=== PATIENT | male | born 1950 | race Caucasian/White ===

== ENCOUNTER 2023-03-15 15:49 | Inpatient (IN) ==
--- NOTE | 2023-03-15 16:22 | DR.AMS ---
HPI Time Seen Time Seen by Provider: 03/15/23 16:21 Complaint Cheif Complaint Doctors Comments: Patient has multiple complaints.He lives alone and states that he has been feeling sob x 1-2 days. Patient has had the ulcerative lesions for several months and had wound care done yesterday. Patient has erythema surrounding his colostomy bag and scrotal erythema. Patient fell 3 weeks ago and was sent tp [facility] for Back Surgery. Patient states that he fell after the surgery and has not been checked out.He is concerned that he has injured his surgical sites. Patient denies: fev er,n,v,chest pain,abdl pain. COVID-19 Coronavirus risk:travel/contact w/high risk person: No Has patient experienced Coronavirus symptoms: No PMH PMH Past Medical History: Anxiety and Hypertension Past Surgical History: Yes Surgical History: Bowel Resection and Ortho Surgery Family History Family Medical History: Hypertension Social History Do you use any recreational Drugs:: No Travel Risk Coronavirus risk:travel/contact w/high risk person: No Has patient experienced Coronavirus symptoms: No ROS Review of Systems Constitutional: negative Fever Eyes: No Symptoms Reported ENTM: No Symptoms Reported Respiratoy: negative Productive Cough or Dry Cough Cardiovascular: Edema (Bilateral lower extremities( nonpitting)); negative Chest Pain Gastrointestinal/Abdominal: negative Diarrhea Genitourinary: No Symptoms Reported Neurological: No Symptoms Reported Musculoskeletal: negative Back Pain Integumentary: Change in Color (BLE,Bilateral scrotal erythema) and Wound (Decubitus ulcers: Rt ankle,Left ankle/Rt>Lt heel/Rt Tib/fib/Left knee) Hematologic/Lymphatic: No Symptoms Reported Endocrine: No Symptoms Reported Psychiatric: No Symptoms Reported All Other Systems: Reviewed and Negative PE Vitals Vital Signs: Temp Pulse Resp BP Pulse Ox O2 Del Method 03/15/23 21:30 124/73 03/15/23 21:30 88 24 03/15/23 21:15 88 24 03/15/23 21:00 86 22 03/15/23 21:00 127/62 03/15/23 20:45 86 22 03/15/23 20:30 128/59 03/15/23 20:30 83 22 96 03/15/23 20:15 81 15 98 03/15/23 20:08 83 97 03/15/23 20:08 131/62 03/15/23 19:30 81 23 99 03/15/23 19:30 142/65 03/15/23 19:00 79 19 98 03/15/23 19:00 126/63 03/15/23 20:16 94.1 F L 03/15/23 18:45 82 12 99 03/15/23 18:30 79 16 97 03/15/23 18:30 123/58 03/15/23 18:22 85 98 03/15/23 18:17 92.9 F L 03/15/23 18:00 131/66 03/15/23 18:00 78 16 97 03/15/23 17:45 83 23 99 03/15/23 17:30 73 18 97 03/15/23 17:30 127/66 03/15/23 17:15 77 33 H 100 03/15/23 17:00 75 19 98 03/15/23 17:00 123/59 03/15/23 16:45 74 18 98 03/15/23 16:41 76 22 99 03/15/23 16:41 112/57 03/15/23 16:30 84 18 03/15/23 16:15 80 23 99 03/15/23 16:00 121/59 03/15/23 16:00 77 18 98 03/15/23 15:58 79 17 98 03/15/23 15:55 135/69 03/15/23 15:55 135/69 03/15/23 15:50 93.3 F L 82 22 135/69 99 Room Air General Limitations: Language Barrier General Appearance: Alert Head Head Exam: Normal Inspection Eyes Eye exam: Normal Appearance ENT ENT Exam: Normal Exam External Ear Exam: Normal External Inspection Nose Exam: Normal Nose Exam Mouth Exam: Normal Inspection Throat Exam: Normal Inspection Neck Neck Exam: Normal Inspection Chest Chest Inspection: Normal Inspection Respiratory Respiratory Exam: Normal Lung Sounds Bilat Respiratory Exam: Bilateral: Clear to Auscultation Cardiovascular Cardiovascular Exam: Regular Rate and Normal Rhythm Abdominal Exam Abdominal Exam: Normal Inspection, Normal Bowel Sounds, Soft and Other (colostomy LLQ-pos erythema surrounding colostomy) Extremities Extremities Exam: Edema (Nonpitting Bilateral LE,+erythema,+warmth) Back Back Exam: Normal Inspection Neurological Neurological Exam: Alert, Oriented X3 and CN II-XII Intact Speech: Fluid Speech Cranial Nerve Exam: EOM Function (II, III, IV, ): Normal, Facial Sensation (V): Normal, Facial Palsy (VII): Normal, Gag reflex (XI): Normal, Spinal Accessory Function (XI): Normal and Tongue Deviation: Normal Psychological Psychiatric Exam: Normal Affect and Normal Mood Skin Skin Exam: Warm, Dry and Intact; negative Normal Color (erythema scrotal,erythema surr. colostomy,erythema BLE,erythma B feet) Other Exam Other Exam: UlCERATED LESIONS:LEFT KNEE JOINT-STAGE 4/LEFT LATERAL MALLEOLUS STAGE 4/LEFT GREAT TOE LATERAL ASPECT STAGE 2/ LEFT HEEL STAGE 1 RT MEDIAL MALEOLUS STAGE 4/RT HEEL NECROTIC LESION COURSE Treatment Treatment: Patient was brought to monitored room.IV access was initiated, labs were drawn, and wound cultures were taken at each ulcerated lesion. 1) Family thought that he was confused and not acting himself. Head CT without contrast was negative. 2) Patient had a fall 3 weeks ago requiring transfer to [facility] for surgery. He states that he fell after having his back surgery and never had himself evaluated. The CT scans without contrast of patient's c ervical, thoracic, lumbar spine were without acute injury. 3) Patient stated that he was short of breath. His ABG revealed a pO2 of 89 and an O2 sat on room air of 97%. Patient's CXR compared to the chest x-ray on 02/08/2023 did not reveal an acute process. 4) patient has multiple areas where he may develop severe infection. He was given a vancomycin loading dose of 1500 mg IV for the cellulitis of his abdomen surrounding the colostomy, scrotal cellulitis, cellulitis of his bilateral lower extremities and feet, and his significant ulcerated lesions. Discussed case with who has accepted the patient to her service. ROR Labs Reviewed Laboratory Results Reviewed?: Yes 03/16/23 04:21 03/16/23 04:21 Laboratory: 03/15/23 17:35 Leg - Left Wound Culture - Preliminary 03/15/23 17:33 Knee - Left Wound Culture - Preliminary 03/15/23 17:37 Ankle - Left Wound Culture - Preliminary 03/15/23 17:32 Toe - Left Big Wound Culture - Preliminary 03/15/23 17:24 Ankle - Right Wound Culture - Preliminary WBC 7.8 X10^3/uL (3.6-10.0) 03/15/23 17:05 RBC 3.17 X10^6/uL (4.7-6.0) L 03/15/23 17:05 Hgb 7.8 g/dL (13.5-18.0) L 03/15/23 17:05 Hct 24.6 % (42.0-54.0) L 03/15/23 17:05 MCV 77.5 fL (80.0-100.0) L 03/15/23 17:05 MCH 24.5 pg (27.0-34.0) L 03/15/23 17:05 MCHC 31.6 g/dL (33.0-35.0) L 03/15/23 17:05 RDW 16.7 % (11.6-16.5) H 03/15/23 17:05 Plt Count 219 X10^3/uL (150.0-450.0) 03/15/23 17:05 MPV 7.7 fL (7.4-11.0) 03/15/23 17:05 Neut % (Auto) 78.5 % (42.0-75.0) H 03/15/23 17:05 Lymph % (Auto) 11.0 % (21.0-51.0) L 03/15/23 17:05 Holmes % (Auto) 4.7 % (0.0-13.0) 03/15/23 17:05 Eos % (Auto) 5.3 % (0.9-2.9) H 03/15/23 17:05 Baso % (Auto) 0.5 % (0.2-1.0) 03/15/23 17:05 Neut # (Auto) 6.1 x10^3/uL (2.2-4.8) H 03/15/23 17:05 Lymph # (Auto) 0.9 X10^3/uL (1.3-2.9) L 03/15/23 17:05 [place] # (Auto) 0.4 x10^3/uL (0.3-0.8) 03/15/23 17:05 Eos # (Auto) 0.4 x10^3/uL (0.0-0.2) H 03/15/23 17:05 Baso # (Auto) 0.0 X10^3/uL (0.0-0.1) 03/15/23 17:05 Absolute Nucleated RBC 0.1 /100WBC 03/15/23 17:05 Sample Site Lbra 03/15/23 17:19 ABG pH 7.460 (7.35-7.45) H 03/15/23 17:19 ABG pCO2 41.0 mmHg (35.0-45.0) 03/15/23 17:19 ABG pO2 87.0 mmHg (80.0-100.0) 03/15/23 17:19 ABG HCO3 29.2 mmol/L (22-26) H 03/15/23 17:19 ABG O2 Saturation 97.0 % (90-100) 03/15/23 17:19 ABG Base Excess 4.9 mmol/L (-2.0-2.0) H 03/15/23 17:19 Austin Test Na 03/15/23 17:19 A-a Gradient 11.0 mmHg 03/15/23 17:19 FiO2 21.0 03/15/23 17:19 Blood Gas Comments Pt ketty well eb 03/15/23 17:19 Sodium 134 mmol/L (136-145) L 03/15/23 17:05 Corrected Sodium TNP 03/15/23 17:05 Potassium 3.6 mmol/L (3.5-5.1) 03/15/23 17:05 Chloride 105 mmol/L (98-107) 03/15/23 17:05 Carbon Dioxide 26.8 mmol/L (21-32) 03/15/23 17:05 BUN 20 mg/dL (7-18) H 03/15/23 17:05 Creatinine 0.59 mg/dL (0.70-1.30) L 03/15/23 17:05 Est GFR (MDRD) Af Amer > 60 (>60) 03/15/23 17:05 Est GFR (MDRD) Non-Af > 60 (>60) 03/15/23 17:05 Glucose 80 mg/dL (65-99) 03/15/23 17:05 Lactic Acid 1.0 mmol/L (0.4-2.0) 03/15/23 17:05 Calcium 8.6 mg/dL (8.5-10.1) 03/15/23 17:05 Corrected Calcium 10.4 mg/dL (8.5-10.1) H 03/15/23 17:05 Total Bilirubin 0.40 mg/dL (0.2-1.0) 03/15/23 17:05 AST 34 Units/L (15-37) 03/15/23 17:05 ALT 22 Units/L (12-78) 03/15/23 17:05 Alkaline Phosphatase 216 Units/L (46-116) H 03/15/23 17:05 Creatine Kinase 169 Units/L (39-308) 03/15/23 17:05 Troponin I High Sens 18.9 ng/L (4.0-60.0) 03/15/23 19:30 C-Reactive Protein 115.20 mg/L (0-3.0) H 03/15/23 17:05 B-Natriuretic Peptide 92.1 pg/mL (0-79) H 03/15/23 17:05 Total Protein 6.8 g/dL (6.4-8.2) 03/15/23 17:05 Albumin 1.8 g/dL (3.4-5.0) L 03/15/23 17:05 Globulin 5.0 g/dL (2.5-4.5) H 03/15/23 17:05 Albumin/Globulin Ratio 0.4 Ratio (1.1-2.1) L 03/15/23 17:05 Opioid Opioid Risk Tool Age (Johan box if 16-45): No History of Preadolescent Sexual Abuse: No Total: 0 Total Score Risk Category: Low Risk Copyright: Juarez MCCRAY predicting aberrant behaviors Discharge Plan Diagnosis Discharge Problem: Cellulitis, Skin ulcer of multiple sites Discharge Plan Patient Disposition: 09 ADMITTED INPATIENT Condition: Stable
[2023-03-15 17:21] LABS: ABG BASE EXCESS 4.9 mmol/L (-2.0-2.0); ABG HCO3 29.2 mmol/L (22-26)
[2023-03-15 17:24] LABS: EOSINOPHILS # (AUTO) 0.4 x10^3/uL (0.0-0.2); HEMOGLOBIN 7.8 g/dL (13.5-18.0); MONOCYTES # (AUTO) 0.4 x10^3/uL (0.3-0.8); RED BLOOD COUNT 3.17 X10^6/uL (4.7-6.0); WHITE BLOOD COUNT 7.8 X10^3/uL (3.6-10.0)
[2023-03-15 17:33] LABS: BASOPHILS % (AUTO) 0.5 % (0.2-1.0); EOSINOPHILS % (AUTO) 5.3 % (0.9-2.9); HEMATOCRIT 24.6 % (42.0-54.0); LYMPHOCYTES # (AUTO) 0.9 X10^3/uL (1.3-2.9); MEAN CORPUSCULAR HEMOGLOBIN 24.5 pg (27.0-34.0); MEAN CORPUSCULAR HGB CONC 31.6 g/dL (33.0-35.0); MEAN CORPUSCULAR VOLUME 77.5 fL (80.0-100.0); MEAN PLATELET VOLUME 7.7 fL (7.4-11.0); MONOCYTES % (AUTO) 4.7 % (0.0-13.0); NEUTROPHILS # (AUTO) 6.1 x10^3/uL (2.2-4.8); NEUTROPHILS % (AUTO) 78.5 % (42.0-75.0); PLATELET COUNT 219 X10^3/uL (150.0-450.0); RED CELL DISTRIBUTION WIDTH 16.7 % (11.6-16.5)
[2023-03-15 17:37] LABS: ALANINE AMINOTRANSFERASE 22 Units/L (12-78); ALBUMIN 1.8 g/dL (3.4-5.0); ALKALINE PHOSPHATASE 216 Units/L (46-116); ASPARTATE AMINO TRANSFERASE 34 Units/L (15-37); BLOOD UREA NITROGEN 20 mg/dL (7-18); CALCIUM 8.6 mg/dL (8.5-10.1); CARBON DIOXIDE 26.8 mmol/L (21-32); CHLORIDE 105 mmol/L (98-107); COR CA(FOR HYPOALB) 10.4 mg/dL (8.5-10.1); CREATINE KINASE 169 Units/L (39-308); CREATININE 0.59 mg/dL (0.70-1.30); GLUCOSE 80 mg/dL (65-99); POTASSIUM 3.6 mmol/L (3.5-5.1); SODIUM 134 mmol/L (136-145); TOTAL PROTEIN 6.8 g/dL (6.4-8.2); eGFR NON BLACK RACES > 60 (>60)
[2023-03-15] MEDS ORDERED: NS 500 ML IV 500 ML IV ONE ×2 (17:56→18:05)
[2023-03-15] MEDS ORDERED: VANCOMYCIN IV *PREMIX 1.5 G/300 ML BAG 1.5 G/300 ML PIGGYBACK IV ONE (18:05)
[2023-03-15] MEDS: VANCOMYCIN IV *PREMIX 1.5 G/300 ML BAG 1.5 G/300 ML PIGGYBACK IV SCH ×2 (18:12→22:14)
--- NOTE | 2023-03-15 19:11 | CT ---
EXAM:BRAIN W/O CONHISTORY:AMS, CONFUSED;COMPARISON:NoneTECHNIQUE:CT scan of the brain was obtained from skull base to vertex without contrast. Dose reduction techniques were utilized.Contrast: NoneFINDINGS:There is diffuse cerebral and cerebellar volume loss. There is no ventricular shift or mass-effect. There are no intraparenchymal masses or extra-axial collections. There is no evidence of intracranial hemorrhage or mass-effect.There are mild atherosclerotic changes noted of the cavernous carotid arteries.Skull base and calvarium are intact. Paranasal sinuses are clear.IMPRESSION:No evidence of acute intracranial pathology. Diffuse generalized cerebral atrophy.THIS IS AN ELECTRONICALLY VERIFIED FINAL REPORT03/15/2023 7:02 PM - Electronically signed by Ginger Colorado MD
--- NOTE | 2023-03-15 19:36 | EKG ---
Test Reason : sob Blood Pressure : */* mmHG Vent. Rate : 83 BPM Atrial Rate : 83 BPM P-R Int : 184 ms QRS Dur : 118 ms QT Int : 428 ms P-R-T Axes : 67 30 56 degrees QTc Int : 502 ms Normal sinus rhythm Incomplete right bundle branch block Septal infarct , age undetermined Prolonged QT Abnormal ECG No previous ECGs available Confirmed by Luis Hendricks ([id number]) on 03/17/2023 7:54:25 AM Referred By: Confirmed By: Luis Hendricks
--- NOTE | 2023-03-15 19:54 | CT ---
EXAM:CT cervical spine without contrastHISTORY:Fall, neck pain.COMPARISON:None.TECHNIQUE:Nonenhanc ed spiral CT imaging was performed through the cervical spine and axial, coronal, and sagittal CT images were generated.FINDINGS:There has been fusion of the cervical spine from C5-C7 with both anterior and posterior hardware. The hardware is intact and the fusion is complete. There is no malalignment above or below the fusion. There is multilevel disc degeneration including atlantoaxial degeneration. There is multilevel facet hypertrophy but no fracture of the posterior elements.C1: There is severe spinal stenosis with the AP dimension of the spinal canal narrowed to 5.6 mm.C2-C3: No significant spinal or neural foraminal stenosis.C3-C4: Mild spinal stenosis. Moderate right C4 neural foraminal narrowing.C4-C5: Mild spinal stenosis.C5 through C7: Adequate decompression.IMPRESSION:Degenerative and postsurgical change but nothing acute.THIS IS AN ELECTRONICALLY VERIFIED FINAL REPORT03/15/2023 7:51 PM - Electronically signed by Tyrone Ferrera MD
--- NOTE | 2023-03-15 21:05 | CT ---
EXAM:LUMBAR SPINE W/O CONHISTORY:tspine pains from fall 3 weeks ago;COMPARISON:None.TECHNIQUE:Nonenhance d spiral CT imaging was performed through the lumbar spine and axial, coronal, and sagittal CT images were generated.FINDINGS:The alignment is anatomic. There is posterior fusion extending from L2 into the lower thoracic spine. There is a burst fracture of T12 which is only partially imaged on this exam and is likely the reason for the posterior fusion. There is no evidence of acute fracture in the lumbar spine. There is no fracture seen in the posterior elements. There is multilevel facet hypertrophy. There is osteopenia/osteoporosis in the pelvis. There is fusion across the SI joints. There is [id number] systemic atherosclerosis.IMPRESSION:Nothing acute in the lumbar spine.THIS IS AN ELECTRONICALLY VERIFIED FINAL REPORT03/15/2023 9:02 PM - Electronically signed by Tyrone Ferrera MD
--- NOTE | 2023-03-15 21:44 | CT ---
EXAM:THORACIC SPINE W/O CONHISTORY:tspine pain from fall 3 weeks ago;COMPARISON:02/11/2023TECHNIQUE:Nonen hanced spiral CT imaging was performed through the thoracic spine and axial, coronal, and sagittal CT images were generated.FINDINGS:There is posterior stabilization with hardware spanning from T10-L2. There is a burst fracture of T12 which is well stabilized with hardware. There is no evidence of hardware loosening or failure. There is no fracture seen in the upper thoracic spine. There is no fracture seen in the posterior elements. With the exception of the T12 level there is no spinal stenosis. There is some debris from the vertebral compression fracture extending into the spinal canal. There is also some mild neural foraminal narrowing at T12 bilaterally.IMPRESSION:The hardware is intact and no acute fracture is detected.THIS IS AN ELECTRONICALLY VERIFIED FINAL REPORT03/15/2023 9:41 PM - Electronically signed by Tyrone Ferrera MD
[2023-03-16 05:20] LABS: BASOPHILS % (AUTO) 0.5 % (0.2-1.0); EOSINOPHILS # (AUTO) 0.3 x10^3/uL (0.0-0.2); EOSINOPHILS % (AUTO) 3.8 % (0.9-2.9); HEMATOCRIT 23.7 % (42.0-54.0); HEMOGLOBIN 7.5 g/dL (13.5-18.0); LYMPHOCYTES # (AUTO) 0.8 X10^3/uL (1.3-2.9); LYMPHOCYTES % (AUTO) 9.4 % (21.0-51.0); MEAN CORPUSCULAR HEMOGLOBIN 24.3 pg (27.0-34.0); MEAN CORPUSCULAR HGB CONC 31.6 g/dL (33.0-35.0); MEAN CORPUSCULAR VOLUME 76.9 fL (80.0-100.0); MEAN PLATELET VOLUME 7.9 fL (7.4-11.0); MONOCYTES # (AUTO) 0.6 x10^3/uL (0.3-0.8); MONOCYTES % (AUTO) 6.8 % (0.0-13.0); NEUTROPHILS % (AUTO) 79.5 % (42.0-75.0); PLATELET COUNT 226 X10^3/uL (150.0-450.0); RED BLOOD COUNT 3.09 X10^6/uL (4.7-6.0); RED CELL DISTRIBUTION WIDTH 17.1 % (11.6-16.5); WHITE BLOOD COUNT 8.8 X10^3/uL (3.6-10.0)
[2023-03-16 05:45] LABS: ALANINE AMINOTRANSFERASE 22 Units/L (12-78); ALBUMIN 1.7 g/dL (3.4-5.0); ALKALINE PHOSPHATASE 199 Units/L (46-116); ASPARTATE AMINO TRANSFERASE 33 Units/L (15-37); BLOOD UREA NITROGEN 18 mg/dL (7-18); CALCIUM 8.5 mg/dL (8.5-10.1); CHLORIDE 105 mmol/L (98-107); COR CA(FOR HYPOALB) 10.3 mg/dL (8.5-10.1); COR NA(FOR HYPERGLY) 139 mmol/L (136-145); GLUCOSE 120 mg/dL (65-99); POTASSIUM 3.3 mmol/L (3.5-5.1); SODIUM 139 mmol/L (136-145); TOTAL PROTEIN 6.8 g/dL (6.4-8.2); eGFR NON BLACK RACES > 60 (>60)
[2023-03-16] MEDS: VANCOMYCIN IV *PREMIX 1.75 G/350 ML BAG 1.75 G/350 ML PIGGYBACK IV SCH ×2 (05:52→17:26)
[2023-03-16] MEDS: CLEOCIN 600 MG IV PREMIX 600 MG/50 ML BAG IV SCH ×4 (05:52→20:59)
[2023-03-16 05:54] LABS: BILIRUBIN,URINE NEGATIVE (NEGATIVE); BLOOD/HEMOGLOBIN,URINE 2+ (NEGATIVE); GLUCOSE, URINE NEGATIVE (NEGATIVE); KETONES,URINE 1+ (NEGATIVE); LEUKOCYTE ESTERASE ,URINE NEGATIVE (NEGATIVE); NITRITES,URINE NEGATIVE (NEGATIVE); PROTEIN,URINE 1+ (NEGATIVE); UROBILINOGEN,URINE NORMAL (NORMAL)
[2023-03-16 05:58] LABS: APPEARANCE,URINE CLEAR (CLEAR); COLOR,URINE DARK YELLOW (YELLOW)
[2023-03-16 05:59] LABS: BACTERIA,URINE TRACE /HPF (NEGATIVE); SQUAMOUS EPITHELIAL CELL,UR MODERATE /HPF (NEGATIVE)
[2023-03-16] MEDS ORDERED: CONSULT PHARMACY - POTASSIUM & MAGNESIUM XX SCH (07:00)
[2023-03-16] MEDS ORDERED: K-DUR TAB 20 MEQ PO SCH (09:00)
--- NOTE | 2023-03-16 13:12 | RAD ---
EXAM:CHEST, 1 VIEWHISTORY:sob, ams;COMPARISON:02/12/2023TECHNIQUE:Alonso ble AP chestFINDINGS:The heart size is enlarged. There is atherosclerosis in the aortic arch. Pulmonary blood flow is congested. The interstitial markings are improved since the earlier study. There is persistent opacity in the left midlung to left base. There is no definite pleural effusion.IMPRESSION:Interval improvement with some non-specific opacity in the left midlung to left base.THIS IS AN ELECTRONICALLY VERIFIED FINAL REPORT03/16/2023 1:08 PM - Electronically signed by Tyrone Ferrera MD
--- NOTE | 2023-03-16 13:13 | DR.H&P ---
H&P History & Physical for Day of: H&P Date: 03/16/23 Chief Complaint Chief Complaint: AMS, leg ulcers Allergies Allergies Allergy/AdvReac Type Severity Reaction Status Date / Time diazepam [From Valium] Allergy Verified 08/09/19 09:26 zolpidem [From Ambien] Allergy Verified 08/09/19 09:26 History of Present Illness History of Present Illness: Mr Moss is a 72y/o male who presented with altered mental status and worsening LE redness and ulcers. He is paraplegic. He had left leg surgery in December 2022 and since then has had worsening LE swelling and redness. He has multiple ulcers on both legs. He is currently seeing wound care outpatient. He was suppose to be scheduled for I&D. In the ER, Ct-head was negative for any acute process. Wound Cx and blood Cx were collected, patient was started on IV antibiotics. He is alert and oriented this morning. LE redness seems to have improved. Labs/imaging reviewed - WBC 8.8 Hgb 7.5 - Wound Cx: gram + cocci, gram (-) rods Plan: Consult surgery for possible I&D. Follow pending cultures. Continue IV Clindamycin, Rocephin and Vancomycin. Wound care as per nursing. Monitor H&H, transfuse if below 7. Replace K as per protocol. Resume home medications. Monitor AM labs/imaging. Past Medical History Past Medical History: Anxiety and Hypertension Additional Medical History: Paraplegia, Pernicious Anemia, Hemorrhoids Past Surgical History Surgical History: Bowel Resection and Ortho Surgery Additional Surgical History: Neck Surgery, Eye Surgery Family History Family Medical History: Hypertension Social History Does patient currently use any type of tobacco product: No Have you used tobacco products in the last 12 months: No Type of Tobacco Use: None Does any household member use tobacco: No Alcohol Use: None Drug Use: None Medications Home Medications: Home Medications Medication Instructions Recorded Confirmed Type nitrofurantoin 100 mg PO BID 02/08/23 03/15/23 History monohydrate/macrocrystals 100 mg capsule (Macrobid) escitalopram oxalate 10 mg tablet 10 mg PO QDAY 02/10/23 03/15/23 History furosemide 40 mg tablet 40 mg PO BID 03/15/23 03/15/23 History levofloxacin 750 mg tablet 750 mg PO QDAY 03/15/23 03/15/23 History Labs 03/16/23 04:21 03/16/23 04:21 Labs: 03/15/23 17:35 Leg - Left Wound Culture - Preliminary 03/15/23 17:33 Knee - Left Wound Culture - Preliminary 03/15/23 17:37 Ankle - Left Wound Culture - Preliminary 03/15/23 17:32 Toe - Left Big Wound Culture - Preliminary 03/15/23 17:24 Ankle - Right Wound Culture - Preliminary Laboratory WBC 8.8 X10^3/uL (3.6-10.0) 03/16/23 04:21 RBC 3.09 X10^6/uL (4.7-6.0) L 03/16/23 04:21 Hgb 7.5 g/dL (13.5-18.0) L 03/16/23 04:21 Hct 23.7 % (42.0-54.0) L 03/16/23 04:21 MCV 76.9 fL (80.0-100.0) L 03/16/23 04:21 MCH 24.3 pg (27.0-34.0) L 03/16/23 04:21 MCHC 31.6 g/dL (33.0-35.0) L 03/16/23 04:21 RDW 17.1 % (11.6-16.5) H 03/16/23 04:21 Plt Count 226 X10^3/uL (150.0-450.0) 03/16/23 04:21 MPV 7.9 fL (7.4-11.0) 03/16/23 04:21 Neut % (Auto) 79.5 % (42.0-75.0) H 03/16/23 04:21 Lymph % (Auto) 9.4 % (21.0-51.0) L 03/16/23 04:21 [place] % (Auto) 6.8 % (0.0-13.0) 03/16/23 04:21 Eos % (Auto) 3.8 % (0.9-2.9) H 03/16/23 04:21 Baso % (Auto) 0.5 % (0.2-1.0) 03/16/23 04:21 Neut # (Auto) 7.0 x10^3/uL (2.2-4.8) H 03/16/23 04:21 Lymph # (Auto) 0.8 X10^3/uL (1.3-2.9) L 03/16/23 04:21 [place] # (Auto) 0.6 x10^3/uL (0.3-0.8) 03/16/23 04:21 Eos # (Auto) 0.3 x10^3/uL (0.0-0.2) H 03/16/23 04:21 Baso # (Auto) 0.0 X10^3/uL (0.0-0.1) 03/16/23 04:21 Absolute Nucleated RBC 0.1 /100WBC 03/16/23 04:21 Sample Site Lbra 03/15/23 17:19 ABG pH 7.460 (7.35-7.45) H 03/15/23 17:19 ABG pCO2 41.0 mmHg (35.0-45.0) 03/15/23 17:19 ABG pO2 87.0 mmHg (80.0-100.0) 03/15/23 17:19 ABG HCO3 29.2 mmol/L (22-26) H 03/15/23 17:19 ABG O2 Saturation 97.0 % (90-100) 03/15/23 17:19 ABG Base Excess 4.9 mmol/L (-2.0-2.0) H 03/15/23 17:19 Austin Test Na 03/15/23 17:19 A-a Gradient 11.0 mmHg 03/15/23 17:19 FiO2 21.0 03/15/23 17:19 Blood Gas Comments Pt ketty well eb 03/15/23 17:19 Sodium 139 mmol/L (136-145) 03/16/23 04:21 Corrected Sodium 139 mmol/L (136-145) 03/16/23 04:21 Potassium 3.3 mmol/L (3.5-5.1) L 03/16/23 04:21 Chloride 105 mmol/L (98-107) 03/16/23 04:21 Carbon Dioxide 26.0 mmol/L (21-32) 03/16/23 04:21 BUN 18 mg/dL (7-18) 03/16/23 04:21 Creatinine 0.70 mg/dL (0.70-1.30) 03/16/23 04:21 Est GFR (MDRD) Af Amer > 60 (>60) 03/16/23 04:21 Est GFR (MDRD) Non-Af > 60 (>60) 03/16/23 04:21 Glucose 120 mg/dL (65-99) H 03/16/23 04:21 Lactic Acid 1.1 mmol/L (0.4-2.0) 03/16/23 01:30 Calcium 8.5 mg/dL (8.5-10.1) 03/16/23 04:21 Corrected Calcium 10.3 mg/dL (8.5-10.1) H 03/16/23 04:21 Magnesium 2.0 mg/dL (2.0-2.9) 03/16/23 04:21 Magnesium 2.0 mg/dL (2.0-2.9) 03/16/23 04:21 Total Bilirubin 0.30 mg/dL (0.2-1.0) 03/16/23 04:21 AST 33 Units/L (15-37) 03/16/23 04:21 ALT 22 Units/L (12-78) 03/16/23 04:21 Alkaline Phosphatase 199 Units/L (46-116) H 03/16/23 04:21 Creatine Kinase 169 Units/L (39-308) 03/15/23 17:05 Troponin I High Sens 18.9 ng/L (4.0-60.0) 03/15/23 19:30 C-Reactive Protein 115.20 mg/L (0-3.0) H 03/15/23 17:05 B-Natriuretic Peptide 92.1 pg/mL (0-79) H 03/15/23 17:05 Total Protein 6.8 g/dL (6.4-8.2) 03/16/23 04:21 Albumin 1.7 g/dL (3.4-5.0) L 03/16/23 04:21 Globulin 5.1 g/dL (2.5-4.5) H 03/16/23 04:21 Albumin/Globulin Ratio 0.3 Ratio (1.1-2.1) L 03/16/23 04:21 Specimen Type Catherized urine 03/16/23 05:25 Urine Color Dark yellow (YELLOW) 03/16/23 05:25 Urine Appearance Clear (CLEAR) 03/16/23 05:25 Urine pH 6.0 (5.0 - 8.0) 03/16/23 05:25 Ur Specific [place] 1.025 (1.000-1.030) 03/16/23 05:25 Urine Protein 1+ (NEGATIVE) 03/16/23 05:25 Urine Glucose (UA) Negative (NEGATIVE) 03/16/23 05:25 Urine Ketones 1+ (NEGATIVE) 03/16/23 05:25 Urine Blood 2+ (NEGATIVE) 03/16/23 05:25 Urine Nitrite Negative (NEGATIVE) 03/16/23 05:25 Urine Bilirubin Negative (NEGATIVE) 03/16/23 05:25 Urine Urobilinogen Normal (NORMAL) 03/16/23 05:25 Ur Leukocyte Esterase Negative (NEGATIVE) 03/16/23 05:25 Urine RBC 5-10 /HPF (0-3) A 03/16/23 05:25 Urine WBC 3-5 /HPF (0-5) 03/16/23 05:25 Ur Squamous Epith Cells Moderate /HPF (NEGATIVE) 03/16/23 05:25 Urine Bacteria Trace /HPF (NEGATIVE) 03/16/23 05:25 Urine Mucus Many /HPF (NEGATIVE) 03/16/23 05:25 Ur Culture Indicated? No/not indicated 03/16/23 05:25 SARS-CoV-2 (PCR) Negative (NEGATIVE) 03/16/23 06:11 Influenza Type A (PCR) Negative (NEGATIVE) 03/16/23 06:11 Influenza Type B (PCR) Negative (NEGATIVE) 03/16/23 06:11 RSV (PCR) Negative (NEGATIVE) 03/16/23 06:11 Review of Systems Constitutional: No Symptoms Reported Eyes: No Symptoms Reported Respiratory: No Symptoms Reported Cardiovascular: No Symptoms Reported Gastrointestinal: No Symptoms Reported Skin: Lesions and Wound Neurological: Weakness and Confusion Physical Exam Vital Signs: Vital Signs Temperature 97.9 F Temperature 97.7 F Pulse Rate [Brachial] 96 Pulse Rate [Brachial] 98 Respiratory Rate 24 Respiratory Rate 22 Blood Pressure [Right Arm] 128/58 Blood Pressure [Right Arm] 124/59 O2 Sat by Pulse Oximetry 95 O2 Sat by Pulse Oximetry 98 Oriented: Normal Respiratory: Diminished Throughout Cardiovascular: Normal Auscultation: Bowel Sounds: Normal Palpation: Normal Tenderness: Normal Skin: Red, Hot, Wound and Other (b/l LE, multiple ulcers noted on leg and feet, draining, erythema, chronic venous stasis. ) Musculoskeletal: Leg and Motor Deficit Psychiatric: Anxiety Mood Description: Calm Affect: Normal Speech Pattern: Clear and Appropriate Assessment/Plan (1) Cellulitis: Qualifiers: Laterality: unspecified laterality Site of cellulitis: extremity Site of cellulitis of extremity: lower extremity Qualified Code(s): L03.119 - Cell ulitis of unspecified part of limb Status: Acute (2) Non-healing wound of right lower extremity: Status: Acute (3) Skin ulcer of multiple sites: Qualifiers: Non-pressure ulcer stage: unspecified non-pressure ulcer stage Qualified Code(s): L98.499 - Non-pressure chronic ulcer of skin of other sites with unspecified severity Status: Acute (4) Non-healing wound of left lower extremity: Status: Acute (5) Paraplegia: Status: Chronic (6) Hypokalemia: Status: Acute Review H&P Reviewed: Yes Patient was examined?: Yes
[2023-03-16] MEDS: NS 1,000 ML IV 1,000 ML IV SCH ×2 (13:50)
[2023-03-16 17:24] LABS: HEMOGLOBIN 7.5 g/dL (13.5-18.0)
[2023-03-16 17:28] LABS: HEMATOCRIT 23.6 % (42.0-54.0)
[2023-03-16] MEDS: ROCEPHIN VIAL 2 GRAMS 2 G in NS 100 ML IV 100 ML IV SCH ×3 (20:58)
[2023-03-17 05:23] LABS: BASOPHILS % (AUTO) 0.3 % (0.2-1.0); EOSINOPHILS # (AUTO) 0.3 x10^3/uL (0.0-0.2); EOSINOPHILS % (AUTO) 2.5 % (0.9-2.9); HEMATOCRIT 23.7 % (42.0-54.0); HEMOGLOBIN 7.3 g/dL (13.5-18.0); LYMPHOCYTES # (AUTO) 0.9 X10^3/uL (1.3-2.9); LYMPHOCYTES % (AUTO) 8.2 % (21.0-51.0); MEAN CORPUSCULAR HGB CONC 30.9 g/dL (33.0-35.0); MEAN CORPUSCULAR VOLUME 77.7 fL (80.0-100.0); MEAN PLATELET VOLUME 7.4 fL (7.4-11.0); MONOCYTES # (AUTO) 0.8 x10^3/uL (0.3-0.8); MONOCYTES % (AUTO) 7.4 % (0.0-13.0); NEUTROPHILS # (AUTO) 9.4 x10^3/uL (2.2-4.8); NEUTROPHILS % (AUTO) 81.6 % (42.0-75.0); PLATELET COUNT 207 X10^3/uL (150.0-450.0); RED BLOOD COUNT 3.05 X10^6/uL (4.7-6.0); WHITE BLOOD COUNT 11.5 X10^3/uL (3.6-10.0)
[2023-03-17] MEDS: NS 1,000 ML IV 1,000 ML IV SCH ×2 (05:42→18:12)
[2023-03-17] MEDS: CLEOCIN 600 MG IV PREMIX 600 MG/50 ML BAG IV SCH (05:42)
[2023-03-17 05:43] LABS: ALANINE AMINOTRANSFERASE 20 Units/L (12-78); ALBUMIN 1.6 g/dL (3.4-5.0); ALKALINE PHOSPHATASE 199 Units/L (46-116); ASPARTATE AMINO TRANSFERASE 31 Units/L (15-37); BLOOD UREA NITROGEN 15 mg/dL (7-18); CALCIUM 8.3 mg/dL (8.5-10.1); CARBON DIOXIDE 24.8 mmol/L (21-32); CHLORIDE 108 mmol/L (98-107); COR CA(FOR HYPOALB) 10.2 mg/dL (8.5-10.1); CREATININE 0.74 mg/dL (0.70-1.30); GLUCOSE 100 mg/dL (65-99); MAGNESIUM 2.1 mg/dL (2.0-2.9); POTASSIUM 3.7 mmol/L (3.5-5.1); SODIUM 141 mmol/L (136-145); TOTAL PROTEIN 6.8 g/dL (6.4-8.2); eGFR NON BLACK RACES > 60 (>60)
[2023-03-17] MEDS: VANCOMYCIN IV *PREMIX 1.75 G/350 ML BAG 1.75 G/350 ML PIGGYBACK IV SCH ×2 (05:58→17:21)
[2023-03-17] MEDS ORDERED: CONSULT PHARMACY - POTASSIUM & MAGNESIUM XX SCH (09:00)
[2023-03-17] MEDS ORDERED: LEXAPRO ONE (09:17)
[2023-03-17] MEDS: LEXAPRO PO SCH (09:22)
--- NOTE | 2023-03-17 09:34 | RAD ---
EXAM:KUBHISTORY:Abdominal distention, constipationCOMPARISON:NoneFINDINGS:Sign ificant bowel distention not identified. No abnormal masses or abnormal calcifications are identified. Regional skeleton is osteopenic but intact.IMPRESSION:THIS IS AN ELECTRONICALLY VERIFIED FINAL REPORT03/17/2023 9:30 AM - Electronically signed by Brian Oneill MD
[2023-03-17] MEDS: XOPENEX 1.25 MG/3 ML NEBULE NEB SCH ×3 (09:47→20:30)
[2023-03-17] MEDS ORDERED: PHARMACY CONSULT - TPN XX SCH (10:00)
[2023-03-17] MEDS ORDERED: K-DUR TAB 20 MEQ PO SCH (10:00)
[2023-03-17] MEDS: ALBUMIN HUMAN 25%- 100 ML 100 ML IV SCH (10:08)
[2023-03-17] MEDS ORDERED: BETADINE SOLN ONE (10:52)
[2023-03-17] MEDS ORDERED: XYLOCAINE 1 % (PLAIN) ONE (10:52)
[2023-03-17] MEDS ORDERED: POLYMYXIN B SULFATE ONE (10:52)
[2023-03-17] MEDS ORDERED: NS 100 ML IV 100 ML ONE (11:04)
[2023-03-17] MEDS ORDERED: LR 1,000 ML IV 1,000 ML IV ONE (11:04)
[2023-03-17] MEDS ORDERED: ANCEF VIAL 1 GRAM ONE (11:04)
[2023-03-17] MEDS ORDERED: DUONEB 0.5 MG/3 MG (3 mL) NEB ONE (11:14)
[2023-03-17] MEDS ORDERED: PRECEDEX INJ VIAL IVP ONE (11:20)
[2023-03-17] MEDS ORDERED: DIPRIVAN VIAL 20 ML ONE (11:20)
[2023-03-17] MEDS ORDERED: PEPCID 20 MG VIAL ONE (11:21)
[2023-03-17] MEDS ORDERED: ZOFRAN INJ 4 MG VIAL ONE (11:21)
[2023-03-17] MEDS ORDERED: FENTANYL VIAL INJ 100 mcg ONE (11:21)
[2023-03-17] MEDS ORDERED: KETAMINE HCL ONE (11:23)
[2023-03-17] MEDS ORDERED: XYLOCAINE 2 % (PLAIN) ONE (11:23)
[2023-03-17] MEDS ORDERED: ROBINUL ONE (11:52)
[2023-03-17] MEDS ORDERED: LACRI-LUBE S.O.P. ONE (11:58)
[2023-03-17] MEDS ORDERED: OFIRMEV IV 1000 MG VIAL 1,000 MG/100 ML VIAL IV ONE (11:58)
--- NOTE | 2023-03-17 12:41 | PCM.PROG ---
Progress Note - Progress Note for Day of Date of Exam: 03/17/23 - Subjective Subjective: IS A 72 YEAR OLD PATIENT OF OURS. HE HAS A PMH OF PARAPLEGIA, HTN, CHRONIC UTIs, AUTODYRELEXIA, ANXIETY, COLOSTOMY, NECK SURGERY, AND RIGHT LEG SURGERY. HE HAS RECENTLY UNDERGONE FUSION OF MULTIPLE VERTABRAE DUE TO UNSTABLE FRACTURES. HE WAS ADMITTED TO THE HOSPITAL ON 03/15 FOR TREATMENT OF LOWER EXTREMITY CELLULITIS, SCROTAL CELLULITIS, MULTIPLE ULCERATIVE LESIONS, ANEMIA, AND HYPOKALEMIA. HE HAS MULTIPLE ULCERS NOTED ON BILATERAL LEGS AND FEET. HE REPORTS FALLING AT HOME AGAIN SINCE HIS RECENT BACK SURGERY. TODAY, HE IS ALERT AND ORIENTED, SITTING UP IN BED ON MORNING ROUNDS. HE CONTINUES TO REPORT A NON-PRODUCTIVE COUGH AND SHORTNESS OF BREATH AT TIMES. ON EXAMINATION, HEART IS REGULAR IN RATE AND RHYTHM. BILATERAL LUNGS ARE NOTED WITH DIMINISHED LUNG SOUNDS THROUGOUT. ABDOMEN IS ROUND, SOFT, AND NON-TENDER WITH NORMAL BOWEL SOUNDS NOTED IN ALL QUADRANTS. MULTIPLE WOUNDS NOTED TO RIGHT AND LEFT LOWER EXTREMITIES. THERE CONTINUES TO BE REDNESS AROUND HIS COLOSTOMY SITE AND TO THE SCROTUM. HIS VITALS THIS MORNING ARE: 97.6-82-22-92%-112/61. HE IS CURRENTLY UTILIZING OXYGEN VIA NASAL CANNULA AT 2 LPM. LABS WERE OBTAINED. WBC 11.5, RBC 3.05, HGB 7.3, HCT 23.7, PLT COUNT 207, SODIUM 141, POTASSIUM 3.7, CHLORIDE 108, BUN 15, CREATININE 0.74, GLUCOSE 100, CALCIUM 8.3, MAGNESIUM 2.1, TOTAL BILI 0.30, AST 31, ALT 20, ALK PHOS 199, TOTAL PROTEIN 6.8, ALBUMIN 1.6. BLOOD AND WOUND CULTURES ARE PENDING. A KUB WAS OBTAINED THIS MORNING DUE TO ABDOMINAL DISTENTION. IT REVEALED: Significant bowel distention not identified. No abnormal masses or abnormal calcifications are identified. Regional skeleton is osteopenic but intact. HE IS CURRENTLY RECEIVING NORMAL SALINE AT 75 ML/HR, VANCOMYCIN 1.75G IV Q12H, ROCEPHIN 1G IV HS, LEXAPRO 10MG DAILY. TODAY, WE WILL ADD ALBUMIN 25% IV DAILY, TPN, AND XOPENEX NEB TX TID. WILL SEE PATIENT THIS MORNING AND ASSESS WOUNDS. DEBRIDEMENT OF WOUNDS MAY BE NEEDED. OTHERWISE, WE WILL FOLLOW-UP WITH AM LABS AND CONTINUE TO MONITOR. TIME SPENT ON CLINICAL ASSESSMENT, REVIEWING LABS AND IMAGING, DECISION MAKING, AND DOC UMENTATION GREATER THAN 45 MINUTES. - Past Medical Family Social History Past Med/Fam/Surg Hx: No changes since H&P Allergies: Allergies diazepam [From Valium] Allergy (Verified 08/09/19 09:26) zolpidem [From Ambien] Allergy (Verified 08/09/19 09:26) - Review of Systems ROS: No change since H&P - Vital Signs and I&O's Vital Signs: Vital Signs Temperature 97.6 F Pulse Rate [Brachial] 82 Pulse Rate 82 Respiratory Rate 22 Respiratory Rate 22 Blood Pressure [Right Arm] 112/61 Blood Pressure 138/67 O2 Sat by Pulse Oximetry 97 O2 Sat by Pulse Oximetry 92 Intake and Output: Intake & Output 03/15/23 03/16/23 03/17/23 03/18/23 11:59 11:59 11:59 11:59 Intake Total 622 / 622 4119 / 4119 600 / 600 Output Total 550 / 550 1900 / 1900 Balance 72 / 72 2219 / 2219 580 / 580 - Physical Exam Oriented: Normal Eyes: Normal Ear: Normal Nose: Normal Throat: Normal Respiratory: Normal Cardiovascular: Normal : Normal Auscultation: Bowel Sounds: Normal Palpation: Normal Tenderness: Normal Skin: Red, Hot, Wound, Other (b/l LE, multiple ulcers noted on leg and feet, draining, erythema, chronic venous stasis.) Musculoskeletal: Leg, Motor Deficit Psychiatric: Anxiety Mood Description: Calm Affect: Normal Speech Pattern: Clear, Appropriate - Laboratory and Diagnostics Result Diagrams: 03/18/23 05:34 03/18/23 05:37 Labs: 03/15/23 17:35 Leg - Left Wound Culture - Preliminary 03/15/23 17:33 Knee - Left Wound Culture - Preliminary 03/15/23 17:24 Ankle - Right Wound Culture - Preliminary 03/15/23 17:37 Ankle - Left Wound Culture - Preliminary 03/15/23 17:32 Toe - Left Big Wound Culture - Preliminary Enterobacter Cloacae Laboratory WBC 11.5 X10^3/uL (3.6-10.0) H 03/17/23 05:00 RBC 3.05 X10^6/uL (4.7-6.0) L 03/17/23 05:00 Hgb 7.3 g/dL (13.5-18.0) L 03/17/23 05:00 Hct 23.7 % (42.0-54.0) L 03/17/23 05:00 MCV 77.7 fL (80.0-100.0) L 03/17/23 05:00 MCH 24.0 pg (27.0-34.0) L 03/17/23 05:00 MCHC 30.9 g/dL (33.0-35.0) L 03/17/23 05:00 RDW 17.0 % (11.6-16.5) H 03/17/23 05:00 Plt Count 207 X10^3/uL (150.0-450.0) 03/17/23 05:00 MPV 7.4 fL (7.4-11.0) 03/17/23 05:00 Neut % (Auto) 81.6 % (42.0-75.0) H 03/17/23 05:00 Lymph % (Auto) 8.2 % (21.0-51.0) L 03/17/23 05:00 [place] % (Auto) 7.4 % (0.0-13.0) 03/17/23 05:00 Eos % (Auto) 2.5 % (0.9-2.9) 03/17/23 05:00 Baso % (Auto) 0.3 % (0.2-1.0) 03/17/23 05:00 Neut # (Auto) 9.4 x10^3/uL (2.2-4.8) H 03/17/23 05:00 Lymph # (Auto) 0.9 X10^3/uL (1.3-2.9) L 03/17/23 05:00 [place] # (Auto) 0.8 x10^3/uL (0.3-0.8) 03/17/23 05:00 Eos # (Auto) 0.3 x10^3/uL (0.0-0.2) H 03/17/23 05:00 Baso # (Auto) 0.0 X10^3/uL (0.0-0.1) 03/17/23 05:00 Absolute Nucleated RBC 0.1 /100WBC 03/17/23 05:00 Sample Site Lbra 03/15/23 17:19 ABG pH 7.460 (7.35-7.45) H 03/15/23 17:19 ABG pCO2 41.0 mmHg (35.0-45.0) 03/15/23 17:19 ABG pO2 87.0 mmHg (80.0-100.0) 03/15/23 17:19 ABG HCO3 29.2 mmol/L (22-26) H 03/15/23 17:19 ABG O2 Saturation 97.0 % (90-100) 03/15/23 17:19 ABG Base Excess 4.9 mmol/L (-2.0-2.0) H 03/15/23 17:19 [place] Test Na 03/15/23 17:19 A-a Gradient 11.0 mmHg 03/15/23 17:19 FiO2 21.0 03/15/23 17:19 Blood Gas Comments Pt ketty well eb 03/15/23 17:19 Sodium 141 mmol/L (136-145) 03/17/23 05:00 Corrected Sodium TNP 03/17/23 05:00 Potassium 3.7 mmol/L (3.5-5.1) 03/17/23 05:00 Chloride 108 mmol/L (98-107) H 03/17/23 05:00 Carbon Dioxide 24.8 mmol/L (21-32) 03/17/23 05:00 BUN 15 mg/dL (7-18) 03/17/23 05:00 Creatinine 0.74 mg/dL (0.70-1.30) 03/17/23 05:00 Est GFR (MDRD) Af Amer > 60 (>60) 03/17/23 05:00 Est GFR (MDRD) Non-Af > 60 (>60) 03/17/23 05:00 Glucose 100 mg/dL (65-99) H 03/17/23 05:00 Lactic Acid 1.1 mmol/L (0.4-2.0) 03/16/23 01:30 Calcium 8.3 mg/dL (8.5-10.1) L 03/17/23 05:00 Corrected Calcium 10.2 mg/dL (8.5-10.1) H 03/17/23 05:00 Magnesium 2.1 mg/dL (2.0-2.9) 03/17/23 05:00 Total Bilirubin 0.30 mg/dL (0.2-1.0) 03/17/23 05:00 AST 31 Units/L (15-37) 03/17/23 05:00 ALT 20 Units/L (12-78) 03/17/23 05:00 Alkaline Phosphatase 199 Units/L (46-116) H 03/17/23 05:00 Creatine Kinase 169 Units/L (39-308) 03/15/23 17:05 Troponin I High Sens 18.9 ng/L (4.0-60.0) 03/15/23 19:30 C-Reactive Protein 115.20 mg/L (0-3.0) H 03/15/23 17:05 B-Natriuretic Peptide 92.1 pg/mL (0-79) H 03/15/23 17:05 Total Protein 6.8 g/dL (6.4-8.2) 03/17/23 05:00 Albumin 1.6 g/dL (3.4-5.0) L 03/17/23 05:00 Globulin 5.2 g/dL (2.5-4.5) H 03/17/23 05:00 Albumin/Globulin Ratio 0.3 Ratio (1.1-2.1) L 03/17/23 05:00 Specimen Type Catherized urine 03/16/23 05:25 Urine Color Dark yellow (YELLOW) 03/16/23 05:25 Urine Appearance Clear (CLEAR) 03/16/23 05:25 Urine pH 6.0 (5.0 - 8.0) 03/16/23 05:25 Ur Specific [place] 1.025 (1.000-1.030) 03/16/23 05:25 Urine Protein 1+ (NEGATIVE) 03/16/23 05:25 Urine Glucose (UA) Negative (NEGATIVE) 03/16/23 05:25 Urine Ketones 1+ (NEGATIVE) 03/16/23 05:25 Urine Blood 2+ (NEGATIVE) 03/16/23 05:25 Urine Nitrite Negative (NEGATIVE) 03/16/23 05:25 Urine Bilirubin Negative (NEGATIVE) 03/16/23 05:25 Urine Urobilinogen Normal (NORMAL) 03/16/23 05:25 Ur Leukocyte Esterase Negative (NEGATIVE) 03/16/23 05:25 Urine RBC 5-10 /HPF (0-3) A 03/16/23 05:25 Urine WBC 3-5 /HPF (0-5) 03/16/23 05:25 Ur Squamous Epith Cells Moderate /HPF (NEGATIVE) 03/16/23 05:25 Urine Bacteria Trace /HPF (NEGATIVE) 03/16/23 05:25 Urine Mucus Many /HPF (NEGATIVE) 03/16/23 05:25 Ur Culture Indicated? No/not indicated 03/16/23 05:25 Random Vancomycin 17.8 ug/mL 03/17/23 05:00 SARS-CoV-2 (PCR) Negative (NEGATIVE) 03/16/23 06:11 Influenza Type A (PCR) Negative (NEGATIVE) 03/16/23 06:11 Influenza Type B (PCR) Negative (NEGATIVE) 03/16/23 06:11 RSV (PCR) Negative (NEGATIVE) 03/16/23 06:11 - Plan (1) Pneumonia Status: Acute Qualifiers: Pneumonia type: due to unspecified organism Laterality: bilateral Lung location: lower lobe of lung Qualified Code(s): J18.9 - Pneumonia, unspecified organism Plan: NORMAL SALINE AT 75 ML/HR, VANCOMYCIN 1.75G IV Q12H, ROCEPHIN 1G IV HS, XOPENEX NEBS TID, LEXAPRO 10MG DAILY. CONTINUE HOME MEDS (2) Cellulitis Status: Acute Qualifiers: Site of cellulitis: extremity Site of cellulitis of extremity: lower extremity Laterality: unspecified laterality Qualified Code(s): L03.119 - Cellulitis of unspecified part of limb (3) Non-healing wound of left lower extremity Status: Acute Plan: DEBRIDEMENT OF WOUNDS TODAY (4) Non-healing wound of right lower extremity Status: Acute Plan: DEBRIDEMENT OF WOUNDS TODAY (5) Skin ulcer of multiple sites Status: Acute Qualifiers: Non-pressure ulcer stage: unspecified non-pressure ulcer stage Qualified Code(s): L98.499 - Non-pressure chronic ulcer of skin of other sites with unspecified severity (6) Hypokalemia Status: Acute (7) Hypertension Status: Chronic Qualifiers: Hypertension type: primary hypertension Qualified Code(s): I10 - Essential (primary) hypertension Plan: CONTINUE TO MONITOR (8) Paraplegia Status: Chronic (9) Major depressive disorder Status: Chronic Qualifiers: Major depression recurrence: unspecified whether recurrent Active/Remission status: remission status unspecified Qualified Code(s): F32.9 - Major depressive disorder, single episode, unspecified Plan: CONTINUE ESCITALOPRAM
[2023-03-17] MEDS ORDERED: DRUG FILTER EXTENSION SET ONE (13:40)
[2023-03-17] MEDS: CLINIMIX 4.25%-5% 1,000 ML with MVI INJ (ADULT) 10 ML IV SCH ×2 (14:10)
[2023-03-17] MEDS: ROCEPHIN VIAL 2 GRAMS 2 G in NS 100 ML IV 100 ML IV SCH (20:58)
[2023-03-18] MEDS: VANCOMYCIN IV *PREMIX 1.75 G/350 ML BAG 1.75 G/350 ML PIGGYBACK IV SCH ×2 (05:05→17:31)
[2023-03-18] MEDS: XOPENEX 1.25 MG/3 ML NEBULE NEB SCH ×5 (06:17→20:30)
[2023-03-18 06:18] LABS: ALANINE AMINOTRANSFERASE 16 Units/L (12-78); ALBUMIN 1.9 g/dL (3.4-5.0); ALKALINE PHOSPHATASE 201 Units/L (46-116); ASPARTATE AMINO TRANSFERASE 27 Units/L (15-37); BLOOD UREA NITROGEN 19 mg/dL (7-18); CALCIUM 8.5 mg/dL (8.5-10.1); CARBON DIOXIDE 22.6 mmol/L (21-32); CHLORIDE 109 mmol/L (98-107); COR CA(FOR HYPOALB) 10.2 mg/dL (8.5-10.1); CREATININE 0.72 mg/dL (0.70-1.30); GLUCOSE 106 mg/dL (65-99); POTASSIUM 3.8 mmol/L (3.5-5.1); SODIUM 141 mmol/L (136-145); TOTAL PROTEIN 7.1 g/dL (6.4-8.2); eGFR NON BLACK RACES > 60 (>60)
[2023-03-18 06:31] LABS: BASOPHILS % (AUTO) 0.5 % (0.2-1.0); EOSINOPHILS # (AUTO) 0.4 x10^3/uL (0.0-0.2); EOSINOPHILS % (AUTO) 4.4 % (0.9-2.9); HEMATOCRIT 23.7 % (42.0-54.0); HEMOGLOBIN 7.3 g/dL (13.5-18.0); LYMPHOCYTES # (AUTO) 1.1 X10^3/uL (1.3-2.9); LYMPHOCYTES % (AUTO) 10.5 % (21.0-51.0); MEAN CORPUSCULAR HEMOGLOBIN 24.2 pg (27.0-34.0); MEAN CORPUSCULAR HGB CONC 30.8 g/dL (33.0-35.0); MEAN CORPUSCULAR VOLUME 78.7 fL (80.0-100.0); MEAN PLATELET VOLUME 7.7 fL (7.4-11.0); MONOCYTES # (AUTO) 0.6 x10^3/uL (0.3-0.8); MONOCYTES % (AUTO) 5.5 % (0.0-13.0); NEUTROPHILS # (AUTO) 8.1 x10^3/uL (2.2-4.8); NEUTROPHILS % (AUTO) 79.1 % (42.0-75.0); PLATELET COUNT 170 X10^3/uL (150.0-450.0); RED BLOOD COUNT 3.01 X10^6/uL (4.7-6.0); RED CELL DISTRIBUTION WIDTH 17.4 % (11.6-16.5); WHITE BLOOD COUNT 10.2 X10^3/uL (3.6-10.0)
[2023-03-18] MEDS ORDERED: CONSULT PHARMACY - POTASSIUM & MAGNESIUM XX SCH (07:00)
[2023-03-18] MEDS: NS 1,000 ML IV 1,000 ML IV SCH ×2 (07:15→20:55)
--- NOTE | 2023-03-18 07:59 | RAD ---
EXAM:CHEST, 1 VIEWHISTORY:SOB ;COMPARISON:03/15/2023.TECHNIQUE:AP view of the chestFINDINGS:The cardiac and mediastinal contours are normal in size. Lower thoracic spine hardware noted. Worse right and similar left base airspace opacities. Small pleural effusions. Lungs hyperexpanded. No pneumothorax.IMPRESSION:Worse right and similar left basilar airspace opacities may represent pneumonia or edema. Suspect small pleural effusions.THIS IS AN ELECTRONICALLY VERIFIED FINAL REPORT03/18/2023 7:55 AM - Electronically signed by Ramiro Avendaño MD
[2023-03-18] MEDS ORDERED: LEXAPRO ONE (08:09)
[2023-03-18] MEDS ORDERED: K-DUR TAB 20 MEQ PO SCH (09:00)
[2023-03-18] MEDS: ALBUMIN HUMAN 25%- 100 ML 100 ML IV SCH (09:26)
[2023-03-18] MEDS: LEXAPRO PO SCH (09:26)
[2023-03-18] MEDS: LASIX PO SCH ×2 (09:29→20:54)
[2023-03-18 10:20] VITALS: BMI 33.7
[2023-03-18] MEDS: CLINIMIX 4.25%-5% 1,000 ML with MVI INJ (ADULT) 10 ML IV SCH ×4 (13:55→18:50)
[2023-03-18] MEDS ORDERED: DRUG FILTER EXTENSION SET ONE (14:05)
[2023-03-18] MEDS: ZOSYN VIAL 3.375 GRAMS 3.375 G in NS 100 ML IV 100 ML IV SCH ×2 (14:15→22:00)
--- NOTE | 2023-03-18 15:15 | PCM.PROG ---
Progress Note - Progress Note for Day of Date of Exam: 03/18/23 - Subjective Subjective: IS A 72 YEAR OLD PATIENT OF OURS. HE HAS A PMH OF PARAPLEGIA, HTN, CHRONIC UTIs, AUTODYRELEXIA, ANXIETY, COLOSTOMY, NECK SURGERY, AND RIGHT LEG SURGERY. HE HAS RECENTLY UNDERGONE FUSION OF MULTIPLE VERTABRAE DUE TO UNSTABLE FRACTURES. HE WAS ADMITTED TO THE HOSPITAL ON 03/15 FOR TREATMENT OF LOWER EXTREMITY CELLULITIS, SCROTAL CELLULITIS, MULTIPLE ULCERATIVE LESIONS, ANEMIA, HYPOKALEMIA, AND PNEUMONIA. HE IS STATUS POST DEBRIDEMENT OF WOUNDS TO BILATERAL LOWER EXTREMITIES. TODAY, HE IS ALERT AND ORIENTED, SITTING UP IN BED ON MORNING ROUNDS. HE CONTINUES TO REPORT A NON-PRODUCTIVE COUGH AND SHORTNESS OF BREATH. ON EXAMINATION, HEART IS REGULAR IN RATE AND RHYTHM. BILATERAL LUNGS ARE NOTED WITH DIMINISHED LUNG SOUNDS THROUGOUT. ABDOMEN IS ROUND, SOFT, AND NON-TENDER WITH NORMAL BOWEL SOUNDS NOTED IN ALL QUADRANTS. MULTIPLE WOUNDS NOTED TO RIGHT AND LEFT LOWER EXTREMITIES. THERE CONTINUES TO BE REDNESS AROUND HIS COLOSTOMY SITE AND TO THE SCROTUM. HIS VITALS THIS MORNING ARE: 98.6-82-20-94%-119/50. HE IS CURRENTLY UTILIZING OXYGEN VIA NASAL CANNULA AT 2 LPM. LABS WERE OBTAINED. WBC 10.2, RBC 3.01, HGB 7.3, HCT 23.7, PLT COUNT 170, SODIUM 141, POTASSIUM 3.8, CHLORIDE 109, BUN 19, CREATININE 0.72, GLUCOSE 106, CALCIUM 8.5, AST 27, ALT 16, ALK PHOS 201, TOTAL PROTEIN 7.1, ALBUMIN 1.9. BLOOD AND SPUTUM CULTURES ARE PENDING. 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 HE IS CURRENTLY RECEIVING NORMAL SALINE AT 35 ML/HR, TPN AT 42 ML/HR, ALBUMIN 25% IV DAILY, VANCOMYCIN 1.75G IV Q12H, ROCEPHIN 1G IV DAILY, LEXAPRO 10MG DAILY, ROBITUSSIN DM 10ML QID, PROBIOTICS, XOPENEX NEBS QID, AND LASIX 40MG PO BID. TODAY, WE WILL ADD PULMICORT NEBS BID. WE WILL DISCONTINUE THE ROCEPHIN AND ADD ZOSYN 3.375G IV TID. WILL FOLLOW PATIENT FOR WOUND CARE. OTHERWISE, WE WILL FOLLOW-UP WITH AM LABS AND CONTINUE TO MONITOR. TIME SPENT ON CLINICAL ASSESSMENT, REVIEWING LABS AND IMAGING, DECISION MAKING, AND DOCUMENTATION GREATER THAN 45 MINUTES. - Past Medical Family Social History Past Med/Fam/Surg Hx: No changes since H&P Allergies: Allergies diazepam [From Valium] Allergy (Verified 08/09/19 09:26) zolpidem [From Ambien] Allergy (Verified 08/09/19 09:26) - Review of Systems ROS: No change since H&P - Vital Signs and I&O's Vital Signs: Vital Signs Temperature 97.7 F Temperature 97.8 F Pulse Rate [Brachial] 78 Pulse Rate [Brachial] 74 Respiratory Rate 22 Respiratory Rate 20 Respiratory Rate 20 Blood Pressure [Right Arm] 112/55 Blood Pressure [Right Arm] 167/74 O2 Sat by Pulse Oximetry 97 O2 Sat by Pulse Oximetry 94 Intake and Output: Intake & Output 03/16/23 03/17/23 03/18/23 03/19/23 11:59 11:59 11:59 11:59 Intake Total 622 / 622 4119 / 4119 3349 / 3349 Output Total 550 / 550 1900 / 1900 795 / 795 Balance 72 / 72 2219 / 2219 2554 / 2554 - Physical Exam Oriented: Normal Eyes: Normal Ear: Normal Nose: Normal Throat: Normal Respiratory: Normal Cardiovascular: Normal : Normal Auscultation: Bowel Sounds: Normal Palpation: Normal Tenderness: Normal Skin: Red, Hot, Wound, Other (b/l LE, multiple ulcers noted on leg and feet, draining, erythema, chronic venous stasis.) Musculoskeletal: Leg, Motor Deficit Psychiatric: Anxiety Mood Description: Calm Affect: Normal Speech Pattern: Clear, Appropriate - Laboratory and Diagnostics Result Diagrams: 03/18/23 05:34 03/18/23 05:37 Labs: 03/17/23 16:21 Sputum - Expectorated Sputum Sputum Culture - Preliminary 03/17/23 16:21 Sputum - Expectorated Sputum - Final 03/17/23 11:53 Foot - Right Wound Culture - Preliminary 03/17/23 11:46 Ankle - Left Wound Culture - Preliminary 03/17/23 11:36 Knee - Left Wound Culture - Preliminary 03/15/23 17:32 Toe - Left Big Wound Culture - Final Enterobacter Cloacae Pseudomonas Aeruginosa Methicillin Resis Staph Aureus 03/15/23 17:35 Leg - Left Wound Culture - Final Methicillin Resis Staph Aureus 03/15/23 17:33 Knee - Left Wound Culture - Final Pseudomonas Aeruginosa Methicillin Resis Staph Aureus 03/15/23 17:37 Ankle - Left Wound Culture - Final Pseudomonas Aeruginosa Methicillin Resis Staph Aureus 03/15/23 17:24 Ankle - Right Wound Culture - Final Pseudomonas Aeruginosa Methicillin Resis Staph Aureus 03/15/23 17:13 Blood Blood Culture - Preliminary 03/15/23 17:05 Blood Blood Culture - Preliminary Laboratory WBC 10.2 X10^3/uL (3.6-10.0) H 03/18/23 05:34 RBC 3.01 X10^6/uL (4.7-6.0) L 03/18/23 05:34 Hgb 7.3 g/dL (13.5-18.0) L 03/18/23 05:34 Hct 23.7 % (42.0-54.0) L 03/18/23 05:34 MCV 78.7 fL (80.0-100.0) L 03/18/23 05:34 MCH 24.2 pg (27.0-34.0) L 03/18/23 05:34 MCHC 30.8 g/dL (33.0-35.0) L 03/18/23 05:34 RDW 17.4 % (11.6-16.5) H 03/18/23 05:34 Plt Count 170 X10^3/uL (150.0-450.0) 03/18/23 05:34 MPV 7.7 fL (7.4-11.0) 03/18/23 05:34 Neut % (Auto) 79.1 % (42.0-75.0) H 03/18/23 05:34 Lymph % (Auto) 10.5 % (21.0-51.0) L 03/18/23 05:34 [place] % (Auto) 5.5 % (0.0-13.0) 03/18/23 05:34 Eos % (Auto) 4.4 % (0.9-2.9) H 03/18/23 05:34 Baso % (Auto) 0.5 % (0.2-1.0) 03/18/23 05:34 Neut # (Auto) 8.1 x10^3/uL (2.2-4.8) H 03/18/23 05:34 Lymph # (Auto) 1.1 X10^3/uL (1.3-2.9) L 03/18/23 05:34 [place] # (Auto) 0.6 x10^3/uL (0.3-0.8) 03/18/23 05:34 Eos # (Auto) 0.4 x10^3/uL (0.0-0.2) H 03/18/23 05:34 Baso # (Auto) 0.0 X10^3/uL (0.0-0.1) 03/18/23 05:34 Absolute Nucleated RBC 0.3 /100WBC 03/18/23 05:34 Sample Site Lbra 03/15/23 17:19 ABG pH 7.460 (7.35-7.45) H 03/15/23 17:19 ABG pCO2 41.0 mmHg (35.0-45.0) 03/15/23 17:19 ABG pO2 87.0 mmHg (80.0-100.0) 03/15/23 17:19 ABG HCO3 29.2 mmol/L (22-26) H 03/15/23 17:19 ABG O2 Saturation 97.0 % (90-100) 03/15/23 17:19 ABG Base Excess 4.9 mmol/L (-2.0-2.0) H 03/15/23 17:19 [place] Test Na 03/15/23 17:19 A-a Gradient 11.0 mmHg 03/15/23 17:19 FiO2 21.0 03/15/23 17:19 Blood Gas Comments Pt ketty well eb 03/15/23 17:19 Sodium 141 mmol/L (136-145) 03/18/23 05:37 Corrected Sodium TNP 03/18/23 05:37 Potassium 3.8 mmol/L (3.5-5.1) 03/18/23 05:37 Chloride 109 mmol/L (98-107) H 03/18/23 05:37 Carbon Dioxide 22.6 mmol/L (21-32) 03/18/23 05:37 BUN 19 mg/dL (7-18) H 03/18/23 05:37 Creatinine 0.72 mg/dL (0.70-1.30) 03/18/23 05:37 Est GFR (MDRD) Af Amer > 60 (>60) 03/18/23 05:37 Est GFR (MDRD) Non-Af > 60 (>60) 03/18/23 05:37 Glucose 106 mg/dL (65-99) H 03/18/23 05:37 Lactic Acid 1.1 mmol/L (0.4-2.0) 03/16/23 01:30 Calcium 8.5 mg/dL (8.5-10.1) 03/18/23 05:37 Corrected Calcium 10.2 mg/dL (8.5-10.1) H 03/18/23 05:37 Magnesium 2.1 mg/dL (2.0-2.9) 03/17/23 05:00 Total Bilirubin 0.30 mg/dL (0.2-1.0) 03/18/23 05:37 AST 27 Units/L (15-37) 03/18/23 05:37 ALT 16 Units/L (12-78) 03/18/23 05:37 Alkaline Phosphatase 201 Units/L (46-116) H 03/18/23 05:37 Creatine Kinase 169 Units/L (39-308) 03/15/23 17:05 Troponin I High Sens 18.9 ng/L (4.0-60.0) 03/15/23 19:30 C-Reactive Protein 115.20 mg/L (0-3.0) H 03/15/23 17:05 B-Natriuretic Peptide 92.1 pg/mL (0-79) H 03/15/23 17:05 Total Protein 7.1 g/dL (6.4-8.2) 03/18/23 05:37 Albumin 1.9 g/dL (3.4-5.0) L 03/18/23 05:37 Globulin 5.2 g/dL (2.5-4.5) H 03/18/23 05:37 Albumin/Globulin Ratio 0.4 Ratio (1.1-2.1) L 03/18/23 05:37 Specimen Type Catherized urine 03/16/23 05:25 Urine Color Dark yellow (YELLOW) 03/16/23 05:25 Urine Appearance Clear (CLEAR) 03/16/23 05:25 Urine pH 6.0 (5.0 - 8.0) 03/16/23 05:25 Ur Specific [place] 1.025 (1.000-1.030) 03/16/23 05:25 Urine Protein 1+ (NEGATIVE) 03/16/23 05:25 Urine Glucose (UA) Negative (NEGATIVE) 03/16/23 05:25 Urine Ketones 1+ (NEGATIVE) 03/16/23 05:25 Urine Blood 2+ (NEGATIVE) 03/16/23 05:25 Urine Nitrite Negative (NEGATIVE) 03/16/23 05:25 Urine Bilirubin Negative (NEGATIVE) 03/16/23 05:25 Urine Urobilinogen Normal (NORMAL) 03/16/23 05:25 Ur Leukocyte Esterase Negative (NEGATIVE) 03/16/23 05:25 Urine RBC 5-10 /HPF (0-3) A 03/16/23 05:25 Urine WBC 3-5 /HPF (0-5) 03/16/23 05:25 Ur Squamous Epith Cells Moderate /HPF (NEGATIVE) 03/16/23 05:25 Urine Bacteria Trace /HPF (NEGATIVE) 03/16/23 05:25 Urine Mucus Many /HPF (NEGATIVE) 03/16/23 05:25 Ur Culture Indicated? No/not indicated 03/16/23 05:25 Random Vancomycin 17.8 ug/mL 03/17/23 05:00 SARS-CoV-2 (PCR) Negative (NEGATIVE) 03/16/23 06:11 Influenza Type A (PCR) Negative (NEGATIVE) 03/16/23 06:11 Influenza Type B (PCR) Negative (NEGATIVE) 03/16/23 06:11 RSV (PCR) Negative (NEGATIVE) 03/16/23 06:11 - Plan (1) Pneumonia Status: Acute Qualifiers: Pneumonia type: due to unspecified organism Laterality: bilateral Lung location: lower lobe of lung Qualified Code(s): J18.9 - Pneumonia, unspecified organism Plan: NORMAL SALINE AT 35 ML/HR, TPN AT 42 ML/HR, ALBUMIN 25% IV DAILY, VANCOMYCIN 1.75G IV Q12H, ZOSYN 3.375G IV TID, LEXAPRO 10MG DAILY, ROBITUSSIN DM 10ML QID, PROBIOTICS, XOPENEX NEBS QID, AND LASIX 40MG PO BID.TODAY, WE WILL ADD PULMICORT NEBS BID. CONTINUE HOME MEDS (2) Cellulitis Status: Acute Qualifiers: Site of cellulitis: extremity Site of cellulitis of extremity: lower extremity Laterality: unspecified laterality Qualified Code(s): L03.119 - Cellulitis of unspecified part of limb (3) Non-healing wound of left lower extremity Status: Acute Plan: DEBRIDEMENT OF WOUNDS TODAY (4) Non-healing wound of right lower extremity Status: Acute Plan: DEBRIDEMENT OF WOUNDS TODAY (5) Skin ulcer of multiple sites Status: Acute Qualifiers: Non-pressure ulcer stage: unspecified non-pressure ulcer stage Qualified Code(s): L98.499 - Non-pressure chronic ulcer of skin of other sites with unspecified severity (6) Hypokalemia Status: Acute (7) Hypertension Status: Chronic Qualifiers: Hypertension type: primary hypertension Qualified Code(s): I10 - Essential (primary) hypertension Plan: CONTINUE TO MONITOR (8) Paraplegia Status: Chronic (9) Major depressive disorder Status: Chronic Qualifiers: Major depression recurrence: unspecified whether recurrent Active/Remission status: remission status unspecified Qualified Code(s): F32.9 - Major depressive disorder, single episode, unspecified Plan: CONTINUE ESCITALOPRAM
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
--- NOTE | 2023-03-18 16:20 | NOTE.SOAP ---
Soap Note Note for Day of Date of Exam: 03/17/23 Subjective Data Subjective Data: quadriplegic patient admitted for change in mental status with problem pneumonia and question of cellulitis of lower extremity wounds Objective Data Temperature: 97.6 F Pulse Rate: 94 Respiratory Rate: 20 Blood Pressure: 134/60 O2 Sat by Pulse Oximetry: 94 Objective Data: all wounds have been dressed. Assessment Assessment: Open wounds of both extremities which are chronic in nature Plan Plan: continue IV antibiotics. Awake cultures. Will plan to apply Santyl to the wounds.
--- NOTE | 2023-03-18 16:39 | NOTE.SOAP ---
Soap Note Note for Day of Date of Exam: 03/18/23 Subjective Data Subjective Data: Patient continues to be alert and oriented. On IV antibiotics to treat pneumonia and possible cellulitis. Objective Data Temperature: 97.7 F Pulse Rate: 78 Respiratory Rate: 22 Blood Pressure: 112/55 O2 Sat by Pulse Oximetry: 97 Objective Data: All wounds dressed, Hgb=7.3,WBC=10.2, Wounds growing Pseudomonas, MRSA and enterobacter. Cultures of sputum are not back yet Assessment Assessment: Colonization of wonds vs. Wound infection. Will continue antibiotics , including Vancomycin and will put Santyl on all wounds . Will roll him over tomorrow to look at recent back surgical wound . [facility]. Plan Plan: as above
[2023-03-18] MEDS: ROBITUSSIN DM PO SCH ×2 (17:30→20:54)
[2023-03-18] MEDS: PULMICORT NEB TX 0.5 MG NEB SCH (20:30)
[2023-03-18 20:41] LABS: ABG ALLEN TEST POS; ABG BASE EXCESS -2.6 mmol/L (-2.0-2.0); ABG HCO3 23.2 mmol/L (22-26)
[2023-03-19] MEDS ORDERED: BUTT CREAM (COMPOUND) ONE (01:21)
[2023-03-19 04:50] LABS: BASOPHILS # (AUTO) 0.1 X10^3/uL (0.0-0.1); BASOPHILS % (AUTO) 0.6 % (0.2-1.0); EOSINOPHILS # (AUTO) 0.2 x10^3/uL (0.0-0.2); EOSINOPHILS % (AUTO) 1.9 % (0.9-2.9); HEMOGLOBIN 7.3 g/dL (13.5-18.0); LYMPHOCYTES # (AUTO) 0.2 X10^3/uL (1.3-2.9); LYMPHOCYTES % (AUTO) 1.9 % (21.0-51.0); MEAN CORPUSCULAR HEMOGLOBIN 24.8 pg (27.0-34.0); MEAN CORPUSCULAR HGB CONC 31.7 g/dL (33.0-35.0); MEAN CORPUSCULAR VOLUME 78.2 fL (80.0-100.0); MEAN PLATELET VOLUME 7.7 fL (7.4-11.0); MONOCYTES # (AUTO) 0.5 x10^3/uL (0.3-0.8); MONOCYTES % (AUTO) 4.6 % (0.0-13.0); NEUTROPHILS # (AUTO) 9.9 x10^3/uL (2.2-4.8); PLATELET COUNT 192 X10^3/uL (150.0-450.0); RED BLOOD COUNT 2.95 X10^6/uL (4.7-6.0); RED CELL DISTRIBUTION WIDTH 17.3 % (11.6-16.5); WHITE BLOOD COUNT 10.9 X10^3/uL (3.6-10.0)
[2023-03-19] MEDS ORDERED: PHARMACY COMMENT IV ONE (05:00)
[2023-03-19 05:01] LABS: ALANINE AMINOTRANSFERASE 19 Units/L (12-78); ALKALINE PHOSPHATASE 217 Units/L (46-116); ASPARTATE AMINO TRANSFERASE 28 Units/L (15-37); BLOOD UREA NITROGEN 19 mg/dL (7-18); CALCIUM 8.4 mg/dL (8.5-10.1); CARBON DIOXIDE 24.3 mmol/L (21-32); CHLORIDE 109 mmol/L (98-107); COR NA(FOR HYPERGLY) 142 mmol/L (136-145); CREATININE 0.77 mg/dL (0.70-1.30); GLUCOSE 111 mg/dL (65-99); POTASSIUM 3.5 mmol/L (3.5-5.1); SODIUM 142 mmol/L (136-145); eGFR NON BLACK RACES > 60 (>60)
[2023-03-19 05:21] LABS: VANCOMYCIN,TROUGH 28.5 ug/mL (15-20)
[2023-03-19] MEDS: ZOSYN VIAL 3.375 GRAMS 3.375 G in NS 100 ML IV 100 ML IV SCH ×2 (05:24→13:45)
[2023-03-19] MEDS: VANCOMYCIN IV *PREMIX 1.75 G/350 ML BAG 1.75 G/350 ML PIGGYBACK IV SCH (05:33)
[2023-03-19 05:43] LABS: METAMYELOCYTES % 1
[2023-03-19 05:44] LABS: ANISOCYTOSIS SLIGHT; HYPOCHROMASIA SLIGHT; MICROCYTOSIS SLIGHT; PLATELET MORPHOLOGY COMMENT NORMAL (NORMAL); STOMATOCYTES 1+
[2023-03-19] MEDS ORDERED: CONSULT PHARMACY - POTASSIUM & MAGNESIUM XX SCH (06:00)
--- NOTE | 2023-03-19 07:04 | RAD ---
EXAM:CHEST, 1 VIEWHISTORY:SOB;COMPARISON:03/18/2023. br.br.br.br chestFINDINGS:Patient is significantly rotated. This alters the cardiac and mediastinal contours. Suspect interval worsening of bilateral mid to lower lung airspace opacities. Can not exclude small pleural effusions. No pneumothorax. Soft tissue attenuation from the chest wall limits evaluation.IMPRESSION:Worsening of bilateral airspace opacities that may represent pneumonia or edema in the acute setting. Recommend radiographic follow-up to resolution.THIS IS AN ELECTRONICALLY VERIFIED FINAL REPORT03/19/2023 7:01 AM - Electronically signed by Ramiro Avendaño MD
[2023-03-19] MEDS ORDERED: LEXAPRO ONE (08:04)
[2023-03-19] MEDS ORDERED: VSL#3 PO SCH (09:00)
[2023-03-19] MEDS ORDERED: K-DUR TAB 20 MEQ PO SCH (09:00)
[2023-03-19] MEDS: XOPENEX 1.25 MG/3 ML NEBULE NEB SCH ×4 (09:14→20:00)
[2023-03-19] MEDS: PULMICORT NEB TX 0.5 MG NEB SCH ×2 (09:15→20:00)
[2023-03-19] MEDS: LASIX PO SCH ×2 (09:23→20:42)
[2023-03-19] MEDS: LEXAPRO PO SCH (09:23)
[2023-03-19] MEDS: ROBITUSSIN DM PO SCH ×4 (09:24→20:42)
[2023-03-19] MEDS: ALBUMIN HUMAN 25%- 100 ML 100 ML IV SCH (09:24)
--- NOTE | 2023-03-19 11:00 | DR.PROGNOT ---
HOSPITAL PROGRESS NOTE Progress Note for Day of: Progress Note Date: 03/19/23 Chief Complaint Chief Complaint: The patient seems to be more comfortable today.. Wound cultures taken in the operating room showed MRSA sensitive to vancomycin. All dressings were changed by nurses and repacked with iodoform, 4 x 4 and [place].. Past Medical Family Social History Past Med/Fam/Surg Hx: No changes since H&P Allergies: Allergies diazepam [From Valium] Allergy (Verified 08/09/19 09:26) zolpidem [From Ambien] Allergy (Verified 08/09/19 09:26) Review Of Systems ROS: No change since H&P Vital Signs Vital Signs: Vital Signs Temperature 97.7 F Pulse Rate [Brachial] 99 Pulse Rate 76 Respiratory Rate 19 Respiratory Rate 29 Blood Pressure [Right Arm] 119/58 O2 Sat by Pulse Oximetry 98 O2 Sat by Pulse Oximetry 95 Physical Exam Oriented: Normal, Time, Person and Place Eyes: Normal Ear: Normal Nose: Normal Throat: Normal Respiratory: Normal Cardiovascular: Normal : Normal GI:Auscultation: Normal and Other (left lower quadrant colostomy ) GI:Palpation: Normal GI: Tenderness: Normal Skin: Other (patient has chronic wounds to both anterior knees and to the right medial ankle. All are chronic , no significant erythema or cellulitis. ) Musculoskeletal: Leg and Motor Deficit Psychiatric: Anxiety Mood Description: Depressed Affect: Normal Speech Pattern: Clear and Appropriate Laboratory and Diagnostics 03/19/23 04:39 03/19/23 04:39 Labs: 03/17/23 11:46 Ankle - Left Wound Culture - Preliminary Methicillin Resis Staph Aureus Pseudomonas Aeruginosa 03/17/23 11:36 Knee - Left Wound Culture - Preliminary Methicillin Resis Staph Aureus 03/17/23 11:53 Foot - Right Wound Culture - Preliminary Methicillin Resis Staph Aureus Pseudomonas Aeruginosa 03/17/23 16:21 Sputum - Expectorated Sputum Sputum Culture - Preliminary 03/17/23 16:21 Sputum - Expectorated Sputum - Final 03/15/23 17:32 Toe - Left Big Wound Culture - Final Enterobacter Cloacae Pseudomonas Aeruginosa Methicillin Resis Staph Aureus 03/15/23 17:35 Leg - Left Wound Culture - Final Methicillin Resis Staph Aureus 03/15/23 17:33 Knee - Left Wound Culture - Final Pseudomonas Aeruginosa Methicillin Resis Staph Aureus 03/15/23 17:37 Ankle - Left Wound Culture - Final Pseudomonas Aeruginosa Methicillin Resis Staph Aureus 03/15/23 17:24 Ankle - Right Wound Culture - Final Pseudomonas Aeruginosa Methicillin Resis Staph Aureus 03/15/23 17:13 Blood Blood Culture - Preliminary 03/15/23 17:05 Blood Blood Culture - Preliminary Laboratory WBC 10.9 X10^3/uL (3.6-10.0) H 03/19/23 04:39 RBC 2.95 X10^6/uL (4.7-6.0) L 03/19/23 04:39 Hgb 7.3 g/dL (13.5-18.0) L 03/19/23 04:39 Hct 23.0 % (42.0-54.0) L 03/19/23 04:39 MCV 78.2 fL (80.0-100.0) L 03/19/23 04:39 MCH 24.8 pg (27.0-34.0) L 03/19/23 04:39 MCHC 31.7 g/dL (33.0-35.0) L 03/19/23 04:39 RDW 17.3 % (11.6-16.5) H 03/19/23 04:39 Plt Count 192 X10^3/uL (150.0-450.0) 03/19/23 04:39 Plt Count Comment Adequate (ADEQUATE) 03/19/23 04:39 MPV 7.7 fL (7.4-11.0) 03/19/23 04:39 Neut % (Auto) 91.0 % (42.0-75.0) H 03/19/23 04:39 Lymph % (Auto) 1.9 % (21.0-51.0) L 03/19/23 04:39 [place] % (Auto) 4.6 % (0.0-13.0) 03/19/23 04:39 Eos % (Auto) 1.9 % (0.9-2.9) 03/19/23 04:39 Baso % (Auto) 0.6 % (0.2-1.0) 03/19/23 04:39 Neut # (Auto) 9.9 x10^3/uL (2.2-4.8) H 03/19/23 04:39 Lymph # (Auto) 0.2 X10^3/uL (1.3-2.9) L 03/19/23 04:39 [place] # (Auto) 0.5 x10^3/uL (0.3-0.8) 03/19/23 04:39 Eos # (Auto) 0.2 x10^3/uL (0.0-0.2) 03/19/23 04:39 Baso # (Auto) 0.1 X10^3/uL (0.0-0.1) 03/19/23 04:39 Absolute Nucleated RBC 0.1 /100WBC 03/19/23 04:39 Total Counted 100 03/19/23 04:39 Neutrophils % (Manual) 91 % (39-76) H 03/19/23 04:39 Lymphocytes % (Manual) 3 % (13-43) L 03/19/23 04:39 Monocytes % (Manual) 4 % (4-9) 03/19/23 04:39 Eosinophils % (Manual) 1 % (0-6) 03/19/23 04:39 Metamyelocytes % 1 03/19/23 04:39 Plt Morphology Comment Normal (NORMAL) 03/19/23 04:39 RBC Morphology Abnormal (NORMAL) 03/19/23 04:39 Hypochromasia Slight A 03/19/23 04:39 Anisocytosis Slight A 03/19/23 04:39 Microcytosis Slight A 03/19/23 04:39 Stomatocytes 1+ A 03/19/23 04:39 Sample Site Rrad 03/18/23 20:32 ABG pH 7.340 (7.35-7.45) L 03/18/23 20:32 ABG pCO2 43.0 mmHg (35.0-45.0) 03/18/23 20:32 ABG pO2 59.0 mmHg (80.0-100.0) L 03/18/23 20:32 ABG HCO3 23.2 mmol/L (22-26) 03/18/23 20:32 ABG O2 Saturation 88.0 % (90-100) L 03/18/23 20:32 ABG Base Excess -2.6 mmol/L (-2.0-2.0) L 03/18/23 20:32 [place] Test Pos 03/18/23 20:32 A-a Gradient 287.0 mmHg 03/18/23 20:32 FiO2 56.0 03/18/23 20:32 Blood Gas Comments Nicolle well ah 03/18/23 20:32 Sodium 142 mmol/L (136-145) 03/19/23 04:39 Corrected Sodium 142 mmol/L (136-145) 03/19/23 04:39 Potassium 3.5 mmol/L (3.5-5.1) 03/19/23 04:39 Chloride 109 mmol/L (98-107) H 03/19/23 04:39 Carbon Dioxide 24.3 mmol/L (21-32) 03/19/23 04:39 BUN 19 mg/dL (7-18) H 03/19/23 04:39 Creatinine 0.77 mg/dL (0.70-1.30) 03/19/23 04:39 Est GFR (MDRD) Af Amer > 60 (>60) 03/19/23 04:39 Est GFR (MDRD) Non-Af > 60 (>60) 03/19/23 04:39 Glucose 111 mg/dL (65-99) H 03/19/23 04:39 Lactic Acid 1.1 mmol/L (0.4-2.0) 03/16/23 01:30 Calcium 8.4 mg/dL (8.5-10.1) L 03/19/23 04:39 Corrected Calcium 10.0 mg/dL (8.5-10.1) 03/19/23 04:39 Magnesium 2.1 mg/dL (2.0-2.9) 03/17/23 05:00 Total Bilirubin 0.40 mg/dL (0.2-1.0) 03/19/23 04:39 AST 28 Units/L (15-37) 03/19/23 04:39 ALT 19 Units/L (12-78) 03/19/23 04:39 Alkaline Phosphatase 217 Units/L (46-116) H 03/19/23 04:39 Creatine Kinase 169 Units/L (39-308) 03/15/23 17:05 Troponin I High Sens 18.9 ng/L (4.0-60.0) 03/15/23 19:30 C-Reactive Protein 115.20 mg/L (0-3.0) H 03/15/23 17:05 B-Natriuretic Peptide 92.1 pg/mL (0-79) H 03/15/23 17:05 Total Protein 7.0 g/dL (6.4-8.2) 03/19/23 04:39 Albumin 2.0 g/dL (3.4-5.0) L 03/19/23 04:39 Globulin 5.0 g/dL (2.5-4.5) H 03/19/23 04:39 Albumin/Globulin Ratio 0.4 Ratio (1.1-2.1) L 03/19/23 04:39 Specimen Type Catherized urine 03/16/23 05:25 Urine Color Dark yellow (YELLOW) 03/16/23 05:25 Urine Appearance Clear (CLEAR) 03/16/23 05:25 Urine pH 6.0 (5.0 - 8.0) 03/16/23 05:25 Ur Specific [place] 1.025 (1.000-1.030) 03/16/23 05:25 Urine Protein 1+ (NEGATIVE) 03/16/23 05:25 Urine Glucose (UA) Negative (NEGATIVE) 03/16/23 05:25 Urine Ketones 1+ (NEGATIVE) 03/16/23 05:25 Urine Blood 2+ (NEGATIVE) 03/16/23 05:25 Urine Nitrite Negative (NEGATIVE) 03/16/23 05:25 Urine Bilirubin Negative (NEGATIVE) 03/16/23 05:25 Urine Urobilinogen Normal (NORMAL) 03/16/23 05:25 Ur Leukocyte Esterase Negative (NEGATIVE) 03/16/23 05:25 Urine RBC 5-10 /HPF (0-3) A 03/16/23 05:25 Urine WBC 3-5 /HPF (0-5) 03/16/23 05:25 Ur Squamous Epith Cells Moderate /HPF (NEGATIVE) 03/16/23 05:25 Urine Bacteria Trace /HPF (NEGATIVE) 03/16/23 05:25 Urine Mucus Many /HPF (NEGATIVE) 03/16/23 05:25 Ur Culture Indicated? No/not indicated 03/16/23 05:25 Vancomycin Trough 28.5 ug/mL (15-20) H* 03/19/23 04:39 Random Vancomycin 17.8 ug/mL 03/17/23 05:00 SARS-CoV-2 (PCR) Negative (NEGATIVE) 03/16/23 06:11 Influenza Type A (PCR) Negative (NEGATIVE) 03/16/23 06:11 Influenza Type B (PCR) Negative (NEGATIVE) 03/16/23 06:11 RSV (PCR) Negative (NEGATIVE) 03/16/23 06:11 Assessment and Plan 1: Multiple bilateral leg ulcers positive for MRSA. Status post recent excisional debridement in the operating room.. To continue vancomycin and local care. Will follow as outpatient.. Problem Patient Problems: Patient Problems (Updated 03/18/23 @ 14:31 by Fredis Medeiros) Pneumonia (Acute) J18.9 Hypokalemia (Acute) E87.6 Hypertension (Chronic) I10 Non-healing wound of right lower extremity (Acute) S81.801A Non-healing wound of left lower extremity (Acute) S81.802A Paraplegia (Chronic) G82.20 Major depressive disorder (Chronic) F32.9 Cellulitis (Acute) L03.90 Skin ulcer of multiple sites (Acute) L98.499
[2023-03-19] MEDS: NS 1,000 ML IV 1,000 ML IV SCH ×2 (12:31→20:42)
[2023-03-19] MEDS: CLINIMIX 4.25%-5% 1,000 ML with MVI INJ (ADULT) 10 ML IV SCH ×2 (13:22)
--- NOTE | 2023-03-19 13:28 | PCM.PROG ---
Progress Note - Progress Note for Day of Date of Exam: 03/19/23 - Subjective Subjective: IS A 72 YEAR OLD PATIENT OF OURS. HE HAS A PMH OF PARAPLEGIA, HTN, CHRONIC UTIs, AUTODYRELEXIA, ANXIETY, COLOSTOMY, NECK SURGERY, AND RIGHT LEG SURGERY. HE HAS RECENTLY UNDERGONE FUSION OF MULTIPLE VERTABRAE DUE TO UNSTABLE FRACTURES. HE WAS ADMITTED TO THE HOSPITAL ON 03/15 FOR TREATMENT OF LOWER EXTREMITY CELLULITIS, SCROTAL CELLULITIS, MULTIPLE ULCERATIVE LESIONS, ANEMIA, HYPOKALEMIA, AND PNEUMONIA. HE IS STATUS POST DEBRIDEMENT OF WOUNDS TO BILATERAL LOWER EXTREMITIES. TODAY, HE IS ALERT AND ORIENTED, SITTING UP IN BED ON MORNING ROUNDS. HE CONTINUES TO REPORT A NON-PRODUCTIVE COUGH AND SHORTNESS OF BREATH. HE UTILIZED THE BIPAP LAST NIGHT AND THIS MORNING BUT IS REQUESTING TO BE PLACED BACK ON HEATED HIGH FLOW OXYGEN. ON EXAMINATION, HEART IS REGULAR IN RATE AND RHYTHM. BILATERAL LUNGS ARE NOTED WITH DIMINISHED LUNG SOUNDS THROUGOUT. ABDOMEN IS ROUND, SOFT, AND NON-TENDER WITH NORMAL BOWEL SOUNDS NOTED IN ALL QUADRANTS. MULTIPLE WOUNDS NOTED TO RIGHT AND LEFT LOWER EXTREMITIES. THERE CONTINUES TO BE REDNESS AROUND HIS COLOSTOMY SITE AND TO THE SCROTUM. HIS VITALS THIS MORNING ARE: 97.7-99-29-95%-119/58. LABS WERE OBTAINED. WBC 10.9, RBC 2.95, HGB 7.3, HCT 23.0, PLT COUNT 192, SODIUM 142, POTASSIUM 3.5, CHLORIDE 109, BUN 19, CREATININE 0.77, GLUCOSE 111, CALCIUM 8.4, TOTAL PROTEIN 7.0, ALBUMIN 2.0. BLOOD AND SPUTUM CULTURES ARE PENDING. 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 HE IS CURRENTLY RECEIVING NORMAL SALINE AT 35 ML/HR, TPN AT 42 ML/HR, ALBUMIN 25% IV DAILY, VANCOMYCIN 1.75G IV Q12H, ZOSYN 3.375G IV TID, LEXAPRO 10MG DAILY, ROBITUSSIN DM 10ML QID, PROBIOTICS, XOPENEX NEBS QID, PULMICORT NEBS BID, AND LASIX 40MG PO BID. WILL FOLLOW PATIENT FOR WOUND CARE. OTHERWISE, WE WILL FOLLOW-UP WITH AM LABS AND CONTINUE TO MONITOR. TIME SPENT ON CLINICAL ASSESSMENT, REVIEWING LABS AND IMAGING, DECISION MAKING, AND DOCUMENTATION GREATER THAN 45 MINUTES. - Past Medical Family Social History Past Med/Fam/Surg Hx: No changes since H&P Allergies: Allergies diazepam [From Valium] Allergy (Verified 08/09/19 09:26) zolpidem [From Ambien] Allergy (Verified 08/09/19 09:26) - Review of Systems ROS: No change since H&P - Vital Signs and I&O's Vital Signs: Vital Signs Pulse Rate 76 Respiratory Rate 19 O2 Sat by Pulse Oximetry 98 Intake and Output: Intake & Output 03/17/23 03/18/23 03/19/23 03/20/23 11:59 11:59 11:59 11:59 Intake Total 4119 / 4119 3349 / 3349 3239 / 3239 Output Total 1900 / 1900 795 / 795 1999 Balance 2219 / 2219 2554 / 2554 1239 / 1239 - Physical Exam Oriented: Normal, Time, Person, Place Eyes: Normal Ear: Normal Nose: Normal Throat: Normal Respiratory: Normal Cardiovascular: Normal : Normal Auscultation: Bowel Sounds: Normal, Other (left lower quadrant colostomy) Tenderness: Normal Skin: Other (patient has chronic wounds to both anterior knees and to the right medial ankle. All are chronic , no significant erythema or cellulitis.) Musculoskeletal: Leg, Motor Deficit Psychiatric: Anxiety Mood Description: Depressed Affect: Normal Speech Pattern: Clear, Appropriate - Laboratory and Diagnostics Result Diagrams: 03/19/23 04:39 03/19/23 04:39 Labs: 03/17/23 11:46 Ankle - Left Wound Culture - Preliminary Methicillin Resis Staph Aureus Pseudomonas Aeruginosa 03/17/23 11:36 Knee - Left Wound Culture - Preliminary Methicillin Resis Staph Aureus 03/17/23 11:53 Foot - Right Wound Culture - Preliminary Methicillin Resis Staph Aureus Pseudomonas Aeruginosa 03/17/23 16:21 Sputum - Expectorated Sputum Sputum Culture - Preliminary 03/17/23 16:21 Sputum - Expectorated Sputum - Final 03/15/23 17:32 Toe - Left Big Wound Culture - Final Enterobacter Cloacae Pseudomonas Aeruginosa Methicillin Resis Staph Aureus 03/15/23 17:35 Leg - Left Wound Culture - Final Methicillin Resis Staph Aureus 03/15/23 17:33 Knee - Left Wound Culture - Final Pseudomonas Aeruginosa Methicillin Resis Staph Aureus 03/15/23 17:37 Ankle - Left Wound Culture - Final Pseudomonas Aeruginosa Methicillin Resis Staph Aureus 03/15/23 17:24 Ankle - Right Wound Culture - Final Pseudomonas Aeruginosa Methicillin Resis Staph Aureus 03/15/23 17:13 Blood Blood Culture - Preliminary 03/15/23 17:05 Blood Blood Culture - Preliminary Laboratory WBC 10.9 X10^3/uL (3.6-10.0) H 03/19/23 04:39 RBC 2.95 X10^6/uL (4.7-6.0) L 03/19/23 04:39 Hgb 7.3 g/dL (13.5-18.0) L 03/19/23 04:39 Hct 23.0 % (42.0-54.0) L 03/19/23 04:39 MCV 78.2 fL (80.0-100.0) L 03/19/23 04:39 MCH 24.8 pg (27.0-34.0) L 03/19/23 04:39 MCHC 31.7 g/dL (33.0-35.0) L 03/19/23 04:39 RDW 17.3 % (11.6-16.5) H 03/19/23 04:39 Plt Count 192 X10^3/uL (150.0-450.0) 03/19/23 04:39 Plt Count Comment Adequate (ADEQUATE) 03/19/23 04:39 MPV 7.7 fL (7.4-11.0) 03/19/23 04:39 Neut % (Auto) 91.0 % (42.0-75.0) H 03/19/23 04:39 Lymph % (Auto) 1.9 % (21.0-51.0) L 03/19/23 04:39 [place] % (Auto) 4.6 % (0.0-13.0) 03/19/23 04:39 Eos % (Auto) 1.9 % (0.9-2.9) 03/19/23 04:39 Baso % (Auto) 0.6 % (0.2-1.0) 03/19/23 04:39 Neut # (Auto) 9.9 x10^3/uL (2.2-4.8) H 03/19/23 04:39 Lymph # (Auto) 0.2 X10^3/uL (1.3-2.9) L 03/19/23 04:39 [place] # (Auto) 0.5 x10^3/uL (0.3-0.8) 03/19/23 04:39 Eos # (Auto) 0.2 x10^3/uL (0.0-0.2) 03/19/23 04:39 Baso # (Auto) 0.1 X10^3/uL (0.0-0.1) 03/19/23 04:39 Absolute Nucleated RBC 0.1 /100WBC 03/19/23 04:39 Total Counted 100 03/19/23 04:39 Neutrophils % (Manual) 91 % (39-76) H 03/19/23 04:39 Lymphocytes % (Manual) 3 % (13-43) L 03/19/23 04:39 Monocytes % (Manual) 4 % (4-9) 03/19/23 04:39 Eosinophils % (Manual) 1 % (0-6) 03/19/23 04:39 Metamyelocytes % 1 03/19/23 04:39 Plt Morphology Comment Normal (NORMAL) 03/19/23 04:39 RBC Morphology Abnormal (NORMAL) 03/19/23 04:39 Hypochromasia Slight A 03/19/23 04:39 Anisocytosis Slight A 03/19/23 04:39 Microcytosis Slight A 03/19/23 04:39 Stomatocytes 1+ A 03/19/23 04:39 Sample Site Rrad 03/18/23 20:32 ABG pH 7.340 (7.35-7.45) L 03/18/23 20:32 ABG pCO2 43.0 mmHg (35.0-45.0) 03/18/23 20:32 ABG pO2 59.0 mmHg (80.0-100.0) L 03/18/23 20:32 ABG HCO3 23.2 mmol/L (22-26) 03/18/23 20:32 ABG O2 Saturation 88.0 % (90-100) L 03/18/23 20:32 ABG Base Excess -2.6 mmol/L (-2.0-2.0) L 03/18/23 20:32 [place] Test Pos 03/18/23 20:32 A-a Gradient 287.0 mmHg 03/18/23 20:32 FiO2 56.0 03/18/23 20:32 Blood Gas Comments Nicolle well ah 03/18/23 20:32 Sodium 142 mmol/L (136-145) 03/19/23 04:39 Corrected Sodium 142 mmol/L (136-145) 03/19/23 04:39 Potassium 3.5 mmol/L (3.5-5.1) 03/19/23 04:39 Chloride 109 mmol/L (98-107) H 03/19/23 04:39 Carbon Dioxide 24.3 mmol/L (21-32) 03/19/23 04:39 BUN 19 mg/dL (7-18) H 03/19/23 04:39 Creatinine 0.77 mg/dL (0.70-1.30) 03/19/23 04:39 Est GFR (MDRD) Af Amer > 60 (>60) 03/19/23 04:39 Est GFR (MDRD) Non-Af > 60 (>60) 03/19/23 04:39 Glucose 111 mg/dL (65-99) H 03/19/23 04:39 Lactic Acid 1.1 mmol/L (0.4-2.0) 03/16/23 01:30 Calcium 8.4 mg/dL (8.5-10.1) L 03/19/23 04:39 Corrected Calcium 10.0 mg/dL (8.5-10.1) 03/19/23 04:39 Magnesium 2.1 mg/dL (2.0-2.9) 03/17/23 05:00 Total Bilirubin 0.40 mg/dL (0.2-1.0) 03/19/23 04:39 AST 28 Units/L (15-37) 03/19/23 04:39 ALT 19 Units/L (12-78) 03/19/23 04:39 Alkaline Phosphatase 217 Units/L (46-116) H 03/19/23 04:39 Creatine Kinase 169 Units/L (39-308) 03/15/23 17:05 Troponin I High Sens 18.9 ng/L (4.0-60.0) 03/15/23 19:30 C-Reactive Protein 115.20 mg/L (0-3.0) H 03/15/23 17:05 B-Natriuretic Peptide 92.1 pg/mL (0-79) H 03/15/23 17:05 Total Protein 7.0 g/dL (6.4-8.2) 03/19/23 04:39 Albumin 2.0 g/dL (3.4-5.0) L 03/19/23 04:39 Globulin 5.0 g/dL (2.5-4.5) H 03/19/23 04:39 Albumin/Globulin Ratio 0.4 Ratio (1.1-2.1) L 03/19/23 04:39 Specimen Type Catherized urine 03/16/23 05:25 Urine Color Dark yellow (YELLOW) 03/16/23 05:25 Urine Appearance Clear (CLEAR) 03/16/23 05:25 Urine pH 6.0 (5.0 - 8.0) 03/16/23 05:25 Ur Specific [place] 1.025 (1.000-1.030) 03/16/23 05:25 Urine Protein 1+ (NEGATIVE) 03/16/23 05:25 Urine Glucose (UA) Negative (NEGATIVE) 03/16/23 05:25 Urine Ketones 1+ (NEGATIVE) 03/16/23 05:25 Urine Blood 2+ (NEGATIVE) 03/16/23 05:25 Urine Nitrite Negative (NEGATIVE) 03/16/23 05:25 Urine Bilirubin Negative (NEGATIVE) 03/16/23 05:25 Urine Urobilinogen Normal (NORMAL) 03/16/23 05:25 Ur Leukocyte Esterase Negative (NEGATIVE) 03/16/23 05:25 Urine RBC 5-10 /HPF (0-3) A 03/16/23 05:25 Urine WBC 3-5 /HPF (0-5) 03/16/23 05:25 Ur Squamous Epith Cells Moderate /HPF (NEGATIVE) 03/16/23 05:25 Urine Bacteria Trace /HPF (NEGATIVE) 03/16/23 05:25 Urine Mucus Many /HPF (NEGATIVE) 03/16/23 05:25 Ur Culture Indicated? No/not indicated 03/16/23 05:25 Vancomycin Trough 28.5 ug/mL (15-20) H* 03/19/23 04:39 Random Vancomycin 17.8 ug/mL 03/17/23 05:00 SARS-CoV-2 (PCR) Negative (NEGATIVE) 03/16/23 06:11 Influenza Type A (PCR) Negative (NEGATIVE) 03/16/23 06:11 Influenza Type B (PCR) Negative (NEGATIVE) 03/16/23 06:11 RSV (PCR) Negative (NEGATIVE) 03/16/23 06:11 - Plan (1) Pneumonia Status: Acute Qualifiers: Pneumonia type: due to unspecified organism Laterality: bilateral Lung location: lower lobe of lung Qualified Code(s): J18.9 - Pneumonia, unspecified organism Plan: NORMAL SALINE AT 35 ML/HR, TPN AT 42 ML/HR, ALBUMIN 25% IV DAILY, VANCOMYCIN 1.75G IV Q12H, ZOSYN 3.375G IV TID, LEXAPRO 10MG DAILY, ROBITUSSIN DM 10ML QID, PROBIOTICS, XOPENEX NEBS QID, AND LASIX 40MG PO BID.TODAY, WE WILL ADD PULMICORT NEBS BID. CONTINUE HOME MEDS (2) Cellulitis Status: Acute Qualifiers: Site of cellulitis: extremity Site of cellulitis of extremity: lower extremity Laterality: unspecified laterality Qualified Code(s): L03.119 - Cellulitis of unspecified part of limb (3) Non-healing wound of left lower extremity Status: Acute Plan: DEBRIDEMENT OF WOUNDS TODAY (4) Non-healing wound of right lower extremity Status: Acute Plan: DEBRIDEMENT OF WOUNDS TODAY (5) Skin ulcer of multiple sites Status: Acute Qualifiers: Non-pressure ulcer stage: unspecified non-pressure ulcer stage Qualified Co de(s): L98.499 - Non-pressure chronic ulcer of skin of other sites with unspecified severity (6) Hypokalemia Status: Acute (7) Hypertension Status: Chronic Qualifiers: Hypertension type: primary hypertension Qualified Code(s): I10 - Essential (primary) hypertension Plan: CONTINUE TO MONITOR (8) Paraplegia Status: Chronic (9) Major depressive disorder Status: Chronic Qualifiers: Major depression recurrence: unspecified whether recurrent Active/Remission status: remission status unspecified Qualified Code(s): F32.9 - Major depressive disorder, single episode, unspecified Plan: CONTINUE ESCITALOPRAM
[2023-03-19] MEDS ORDERED: DRUG FILTER EXTENSION SET ONE (18:33)
[2023-03-19] MEDS: VANCOMYCIN IV *PREMIX 1.25 G/250 ML BAG 1.25 G/250 ML PIGGYBACK IV SCH (20:42)
[2023-03-19] MEDS ORDERED: ADRENALINE CHL INJ (ABBOJECT) IVP ONE ×6 (21:27→21:51)
[2023-03-19] MEDS ORDERED: SODIUM BICARBONATE 8.4% INJ ADULT IVP ONE ×3 (21:28→22:54)
[2023-03-19] MEDS ORDERED: ADRENALINE CHL INJ ONE (21:49)
[2023-03-19] MEDS ORDERED: NS 250 ML IV 250 ML IV ONE (21:49)
[2023-03-19] MEDS ORDERED: ADRENALINE CHL INJ 3 MG in NS 250 ML IV 247 ML IV PRN (21:52)
[2023-03-19] MEDS ORDERED: ADRENALINE CHL INJ (ABBOJECT) IV ONE (21:52)
[2023-03-19] MEDS ORDERED: NORMODYNE INJ 20 MG VIAL IVP ONE (22:03)
[2023-03-19] MEDS ORDERED: NORMODYNE INJ 100 MG VIAL IVP ONE (22:03)
[2023-03-19] MEDS ORDERED: NORMODYNE INJ 20 MG VIAL ONE (22:05)
[2023-03-19] MEDS ORDERED: DOPAMINE IV PREMIX 400 MG/250 ML 400 MG/250 ML BAG IV ONE (22:19)
[2023-03-19] MEDS: DOPAMINE IV PREMIX 400 MG/250 ML 400 MG/250 ML BAG IV PRN (22:23)
[2023-03-19 22:24] LABS: ABG ALLEN TEST POS; ABG HCO3 16.5 mmol/L (22-26)
[2023-03-19] MEDS ORDERED: LASIX IVP ONE (22:56)
--- NOTE | 2023-03-19 23:00 | EKG ---
Test Reason : VENT Blood Pressure : */* mmHG Vent. Rate : 103 BPM Atrial Rate : 103 BPM P-R Int : 212 ms QRS Dur : 122 ms QT Int : 384 ms P-R-T Axes : 77 22 85 degrees QTc Int : 503 ms Sinus tachycardia with 1st degree AV block with frequent premature ventricular complexes Nonspecific intraventricular conduction delay ST depression, consider subendocardial injury Nonspecific T wave abnormality Abnormal ECG When compared with ECG of 15-MAR-2023 19:33, premature ventricular complexes are now present ST more depressed in Lateral leads T wave amplitude has increased in Lateral leads Confirmed by Alberto Enrique MD ([id number]) on 03/20/2023 7:58:15 AM Referred By: Confirmed By: Alberto Enrique MD
[2023-03-19 23:05] LABS: ABG HCO3 18.5 mmol/L (22-26)
[2023-03-19 23:06] LABS: ABG ALLEN TEST POS
--- NOTE | 2023-03-20 00:56 | RAD ---
EXAM:CHEST, 1 VIEWHISTORY:CENTRAL LINE PLACEMENT;COMPARISON:March 19, 2023 at 10:04 p.m.TECHNIQUE:Chest radiographic imaging, AP portable projection, 1 imageFINDINGS:Mild cardiomegaly.Bilateral perihilar airspace opacities; without significant change.No definite effusion.No pneumothorax.Endotracheal tube tip overlies the mid trachea.Esophagogastric tube courses into the stomach with the distal tip not imaged.Right subclavian central line tip is near the cavoatrial junction.IMPRESSION:1. No significant interval acute cardiopulmonary changes.2. Support apparatus as described above.THIS IS AN ELECTRONICALLY VERIFIED FINAL REPORT03/20/2023 12:52 AM - Electronically signed by Ray Matute MD
[2023-03-20] MEDS: ZOSYN VIAL 3.375 GRAMS 3.375 G in NS 100 ML IV 100 ML IV SCH ×4 (01:02→21:05)
--- NOTE | 2023-03-20 01:03 | RAD ---
EXAM:CHEST, 1 VIEWHISTORY:PT UNRESPONSIVE, OG TUBE PLACEMENT;COMPARISON:March 19, 2023 at 4:52 a.m.TECHNIQUE:Chest radiographic imaging, AP portable projection, 1 imageFINDINGS:Mild cardiomegaly.Bilateral perihilar airspace opacities.No definite effusion.No pneumothorax.Endotracheal tube tip overlies the mid trachea.Esophagogastric tube tip is in the body of the stomach.IMPRESSION:1. No significant interval acute cardiopulmonary changes.2. Support apparatus as described above.THIS IS AN ELECTRONICALLY VERIFIED FINAL REPORT03/20/2023 1:00 AM - Electronically signed by Ray Matute MD
--- NOTE | 2023-03-20 04:50 | EKG ---
Test Reason : Repeat EKG Blood Pressure : */* mmHG Vent. Rate : 123 BPM Atrial Rate : 123 BPM P-R Int : 166 ms QRS Dur : 106 ms QT Int : 332 ms P-R-T Axes : 40 26 66 degrees QTc Int : 475 ms Sinus tachycardia with frequent premature ventricular complexes in a pattern of bigeminy Low voltage QRS Incomplete right bundle branch block Nonspecific ST and T wave abnormality Abnormal ECG When compared with ECG of 19-MAR-2023 22:40, (Unconfirmed) MD interval has decreased Confirmed by Alberto Enrique MD ([id number]) on 03/20/2023 7:58:04 AM Referred By: Confirmed By: Alberto Enrique MD
[2023-03-20] MEDS ORDERED: NS 1,000 ML IV 1,000 ML ONE (04:58)
[2023-03-20 05:00] LABS: ABG BASE EXCESS -2.6 mmol/L (-2.0-2.0); ABG HCO3 25.7 mmol/L (22-26)
[2023-03-20 05:01] LABS: ABG ALLEN TEST POS
[2023-03-20] MEDS: NS 1,000 ML IV 1,000 ML IV SCH ×3 (05:04→15:38)
[2023-03-20 05:50] LABS: BASOPHILS % (AUTO) 0.2 % (0.2-1.0); HEMATOCRIT 26.3 % (42.0-54.0); HEMOGLOBIN 7.8 g/dL (13.5-18.0); LYMPHOCYTES # (AUTO) 0.2 X10^3/uL (1.3-2.9); LYMPHOCYTES % (AUTO) 1.2 % (21.0-51.0); MEAN CORPUSCULAR HEMOGLOBIN 23.6 pg (27.0-34.0); MEAN CORPUSCULAR HGB CONC 29.7 g/dL (33.0-35.0); MEAN CORPUSCULAR VOLUME 79.5 fL (80.0-100.0); MEAN PLATELET VOLUME 7.8 fL (7.4-11.0); MONOCYTES # (AUTO) 0.5 x10^3/uL (0.3-0.8); MONOCYTES % (AUTO) 2.6 % (0.0-13.0); NEUTROPHILS # (AUTO) 18.7 x10^3/uL (2.2-4.8); PLATELET COUNT 236 X10^3/uL (150.0-450.0); RED CELL DISTRIBUTION WIDTH 17.7 % (11.6-16.5); WHITE BLOOD COUNT 19.5 X10^3/uL (3.6-10.0)
[2023-03-20] MEDS ORDERED: NS 100 ML IV 100 ML ONE (05:51)
[2023-03-20] MEDS ORDERED: ZOSYN VIAL 3.375 GRAMS IV ONE (05:51)
[2023-03-20 06:07] LABS: BAND NEUTROPHILS % 11 % (0-10)
[2023-03-20 06:09] LABS: ANISOCYTOSIS SLIGHT; HYPOCHROMASIA SLIGHT; MICROCYTOSIS SLIGHT; PLATELET MORPHOLOGY COMMENT NORMAL (NORMAL)
[2023-03-20 06:27] LABS: ALANINE AMINOTRANSFERASE 43 Units/L (12-78); ALBUMIN 2.1 g/dL (3.4-5.0); ALKALINE PHOSPHATASE 285 Units/L (46-116); ASPARTATE AMINO TRANSFERASE 157 Units/L (15-37); BLOOD UREA NITROGEN 28 mg/dL (7-18); CALCIUM 8.2 mg/dL (8.5-10.1); CARBON DIOXIDE 25.8 mmol/L (21-32); CHLORIDE 108 mmol/L (98-107); COR CA(FOR HYPOALB) 9.7 mg/dL (8.5-10.1); CREATININE 1.44 mg/dL (0.70-1.30); GLUCOSE 87 mg/dL (65-99); POTASSIUM 3.9 mmol/L (3.5-5.1); SODIUM 142 mmol/L (136-145); TOTAL PROTEIN 7.1 g/dL (6.4-8.2); eGFR NON BLACK RACES 51 (>60)
[2023-03-20 07:04] LABS: INR 1.52 (0.8-1.3)
[2023-03-20] MEDS ORDERED: XOPENEX 1.25 MG/3 ML NEBULE NEB ONE ×2 (07:04→19:14)
--- NOTE | 2023-03-20 07:07 | RAD ---
EXAM:CHEST, 1 VIEWHISTORY:SOB;COMPARISON:Prior study or studies were utilized for comparison during interpretation with the most relevant dated yesterdayTECHNIQUE:CHEST, 1 VIEWFINDINGS:Chest:Lines and tubes: Endotracheal tube is seen with its tip above the julien. Transesophageal enteric tube is seen with its tip below the diaphragm. Cardiac leads overlie the chest.Mediastinum: Cardiomegaly.Pulmonary vessels: There is pulmonary vascular congestion.Lung braxton: Patchy opacities are seenPleura: No effusion. No pneumothorax.Bones and soft tissues: No acute osseous or soft tissue abnormality. Lumbar fusion hardware partially visualizedIMPRESSION:1. Heart failure with or without superimposed2. Support apparatus as describedTHIS IS AN ELECTRONICALLY VERIFIED FINAL REPORT03/20/2023 7:04 AM - Electronically signed by Davie Miller MD
[2023-03-20] MEDS: XOPENEX 1.25 MG/3 ML NEBULE NEB SCH ×4 (07:15→20:05)
[2023-03-20] MEDS: PULMICORT NEB TX 0.5 MG NEB SCH ×2 (07:15→20:05)
[2023-03-20] MEDS ORDERED: DOPAMINE IV PREMIX 400 MG/250 ML 400 MG/250 ML BAG IV ONE (07:18)
[2023-03-20] MEDS: DOPAMINE IV PREMIX 400 MG/250 ML 400 MG/250 ML BAG IV PRN ×2 (07:22→16:57)
[2023-03-20] MEDS: VANCOMYCIN IV *PREMIX 1.25 G/250 ML BAG 1.25 G/250 ML PIGGYBACK IV SCH ×2 (08:23→20:36)
[2023-03-20] MEDS ORDERED: VANCOMYCIN IV *PREMIX 1.25 G/250 ML BAG 1.25 G/250 ML PIGGYBACK IV ONE (08:48)
[2023-03-20] MEDS: ALBUMIN HUMAN 25%- 100 ML 100 ML IV SCH (08:53)
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
[2023-03-21 05:10] LABS: ABG BASE EXCESS -3.9 mmol/L (-2.0-2.0); ABG HCO3 22.6 mmol/L (22-26)
[2023-03-21 05:11] LABS: ABG ALLEN TEST POS
[2023-03-21] MEDS: NS 1,000 ML IV 1,000 ML IV SCH (05:21)
[2023-03-21] MEDS: ZOSYN VIAL 3.375 GRAMS 3.375 G in NS 100 ML IV 100 ML IV SCH (05:21)
[2023-03-21 05:25] LABS: BASOPHILS % (AUTO) 0.2 % (0.2-1.0); EOSINOPHILS # (AUTO) 0.3 x10^3/uL (0.0-0.2); EOSINOPHILS % (AUTO) 1.4 % (0.9-2.9); HEMATOCRIT 23.5 % (42.0-54.0); HEMOGLOBIN 7.2 g/dL (13.5-18.0); LYMPHOCYTES # (AUTO) 0.3 X10^3/uL (1.3-2.9); LYMPHOCYTES % (AUTO) 1.5 % (21.0-51.0); MEAN CORPUSCULAR HEMOGLOBIN 23.9 pg (27.0-34.0); MEAN CORPUSCULAR HGB CONC 30.7 g/dL (33.0-35.0); MEAN CORPUSCULAR VOLUME 77.8 fL (80.0-100.0); MONOCYTES # (AUTO) 0.5 x10^3/uL (0.3-0.8); MONOCYTES % (AUTO) 2.3 % (0.0-13.0); NEUTROPHILS # (AUTO) 19.4 x10^3/uL (2.2-4.8); NEUTROPHILS % (AUTO) 94.6 % (42.0-75.0); PLATELET COUNT 180 X10^3/uL (150.0-450.0); RED BLOOD COUNT 3.01 X10^6/uL (4.7-6.0); RED CELL DISTRIBUTION WIDTH 17.9 % (11.6-16.5); WHITE BLOOD COUNT 20.6 X10^3/uL (3.6-10.0)
[2023-03-21 05:37] LABS: ALANINE AMINOTRANSFERASE 34 Units/L (12-78); ALBUMIN 1.9 g/dL (3.4-5.0); ALKALINE PHOSPHATASE 218 Units/L (46-116); ASPARTATE AMINO TRANSFERASE 102 Units/L (15-37); BLOOD UREA NITROGEN 40 mg/dL (7-18); CALCIUM 8.6 mg/dL (8.5-10.1); CARBON DIOXIDE 23.8 mmol/L (21-32); CHLORIDE 108 mmol/L (98-107); COR CA(FOR HYPOALB) 10.3 mg/dL (8.5-10.1); GLUCOSE 84 mg/dL (65-99); POTASSIUM 3.3 mmol/L (3.5-5.1); SODIUM 143 mmol/L (136-145); TOTAL PROTEIN 6.6 g/dL (6.4-8.2); eGFR NON BLACK RACES 26 (>60)
[2023-03-21 06:02] VITALS: RESP 16
[2023-03-21 06:04] LABS: ANISOCYTOSIS SLIGHT; BAND NEUTROPHILS % 9 % (0-10); HYPOCHROMASIA 1+; MICROCYTOSIS SLIGHT; PLATELET MORPHOLOGY COMMENT NORMAL (NORMAL)
[2023-03-21] MEDS ORDERED: CONSULT PHARMACY - POTASSIUM & MAGNESIUM XX SCH (07:00)
[2023-03-21] MEDS ORDERED: NS + KCL 20 MEQ/L 1,000 ML IV SCH (08:00)
[2023-03-21] MEDS: PULMICORT NEB TX 0.5 MG NEB SCH (08:16)
[2023-03-21] MEDS: XOPENEX 1.25 MG/3 ML NEBULE NEB SCH ×2 (08:16→13:09)
[2023-03-21] MEDS ORDERED: PHARMACY COMMENT IV ONE (08:30)
--- NOTE | 2023-03-21 08:40 | NOTE.SOAP ---
Soap Note Note for Day of Date of Exam: 03/21/23 Subjective Data Subjective Data: intubated Objective Data Objective Data: bp 100 p 100 but still on DOPA- no spontaneous movement- still on 80 % fio2- lungs: junky b ext : 1-2 plus edema cxr yesterday: chf labs today: wbc 20k, hct 23 cr went from 1.4 to 2.6 post arrest Assessment Assessment: cellulitis, nstemi, ef 25%- chf- prob encephalopthy post arrest, worsening kidney functio Plan Plan: wean down dopa if possible- consider diuresis slowly to help get fluid out of lungs and help oxygenate-follow neuro status- i will be back friday but avail by phone if needed
[2023-03-21] MEDS ORDERED: K-DUR TAB 20 MEQ PO SCH (09:00)
[2023-03-21 09:18] LABS: CREATININE 2.84 mg/dL (0.70-1.30)
[2023-03-21 09:28] LABS: VANCOMYCIN,TROUGH 41.7 ug/mL (15-20)
[2023-03-21] MEDS: VANCOMYCIN IV *PREMIX 1.25 G/250 ML BAG 1.25 G/250 ML PIGGYBACK IV SCH (09:30)
[2023-03-21] MEDS: ALBUMIN HUMAN 25%- 100 ML 100 ML IV SCH (10:12)
[2023-03-21] MEDS ORDERED: MORPHINE SULFATE INJ 4 MG IVP ONE (13:20)
[2023-03-21] MEDS ORDERED: VERSED IVP ONE (13:22)
[2023-03-21 13:28] VITALS: TEMP 98.4
[2023-03-21 13:30] VITALS: BP 94/51; PULSE 97; O2SAT 94
[2023-03-21] MEDS ORDERED: MORPHINE SULFATE INJ 10 MG IVP NR (14:00)
[2023-03-21] MEDS ORDERED: ZOSYN VIAL 3.375 GRAMS 3.375 G in NS 100 ML IV 100 ML IV SCH (21:00)
== END 2023-03-21 16:41 | disposition expired | DRG 570 ==
LOC: ER 15:49 → MED/SURG 21:45 → U 03-20 00:45 → ICU 03-20 12:24
PROVIDERS: ADMIT Internal Medicine; ATTEND Internal Medicine
DX: L89.619 Pressure ulcer of right heel, unspecified stage; B95.62 Methicillin resistant Staphylococcus aureus infection as the cause of diseases classified elsewhere; R94.31 Abnormal electrocardiogram [ECG] [EKG]; B96.5 Pseudomonas (aeruginosa) (mallei) (pseudomallei) as the cause of diseases classified elsewhere; R26.89 Other abnormalities of gait and mobility; F32.89 Other specified depressive episodes; N49.2 Inflammatory disorders of scrotum; R41.82 Altered mental status, unspecified; Z93.3 Colostomy status; Z91.81 History of falling; L89.519 Pressure ulcer of right ankle, unspecified stage; L03.116 Cellulitis of left lower limb; L89.899 Pressure ulcer of other site, unspecified stage; L89.529 Pressure ulcer of left ankle, unspecified stage; R06.02 Shortness of breath; B96.89 Other specified bacterial agents as the cause of diseases classified elsewhere; E87.6 Hypokalemia; R79.82 Elevated C-reactive protein (CRP); R79.1 Abnormal coagulation profile; J18.8 Other pneumonia, unspecified organism; L03.115 Cellulitis of right lower limb; Z98.890 Other specified postprocedural states; Z66 Do not resuscitate; I21.4 Non-ST elevation (NSTEMI) myocardial infarction; L97.829 Non-pressure chronic ulcer of other part of left lower leg with unspecified severity; I46.9 Cardiac arrest, cause unspecified; I10 Essential (primary) hypertension; I87.2 Venous insufficiency (chronic) (peripheral); R60.0 Localized edema; Z20.822 Contact with and (suspected) exposure to COVID-19; R77.8 Other specified abnormalities of plasma proteins; G82.20 Paraplegia, unspecified